=== PATIENT | female | born 1990 | race Caucasian/White ===

== ENCOUNTER 2022-07-01 16:36 | Emergency (ER) | payer MEDICAID, SELFPAY ==
[2022-07-01 16:53] VITALS: BP 116/81; PULSE 103; RESP 16; TEMP 36.9; O2SAT 99; BMI 18.0
--- NOTE | 2022-07-01 17:06 | ED_ITS ---
HPI - General Adult General Time Seen by Provider: 17:07 Date Seen: 07/01/22 Chief complaint: GI Bleed Stated complaint: BLOOD IN BOWEL MOVEMENTS - 1-2 WEEKS Time Seen by Provider: 07/01/22 17:04 Source: patient and RN notes reviewed Mode of arrival: ambulatory Limitations: no limitations History of Present Illness HPI narrative: Patient is a 32-year-old female with defecation. This is been going on about 2 weeks. She stools usually once a day most days and there has been no pain with stooling. She has been getting bright red blood mixed in with stool. She did show me a picture. She has some formed stool and some bright red blood in the toilet. She is not bleeding without stooling. She has maybe had some abdominal pain but it maybe lasts for 10 minutes. She had a grandfather that had colon cancer in his 70s, no other relative. No nausea vomiting, no fevers chills. In 2019, she did get a blood transfusion after placental abruption. Right now she feels a little lightheaded but no chest pain, no presyncope/syncope, not short of breath. Uses Depo-Provera for contraception and does not get her menses on this. Is sexually active. Takes no blood thinners. Related Data Allergies Allergy/AdvReac Type Severity Reaction Status Date / Time hydrocodone AdvReac Intermediate Nausea/vomi Verified 05/12/22 08:36 ting Review of Systems Status of ROS: Reports: 10 or more systems reviewed and unremarkable except as noted in History and below [facility] Medical History (Updated 07/01/22 @ 17:24 by Kari Mesa MD) Anemia due to acute blood loss Transfusion of blood during current hospitalization Surgical History (Updated 05/12/22 @ 08:37 by Isaura Hollingsworth) History of colposcopy with cervical biopsy (12/18/21) Status post cone biopsy of cervix (02/09/22) Status post primary low transverse section Status post repeat low transverse section Social History Smoking Status: Never smoker Do you use any of these nicotine containing products: None Second hand tobacco smoke exposure: No How often do you have a drink containing alcohol: never How often do you have six or more drinks on one occasion: Never AUDIT-C Alcohol total score: 0 Non-prescribed substance use: denies use service: No Exam Const: Vital Signs, click to edit/add: Vital Signs - 24 hr 07/01/22 16:53 07/01/22 17:37 07/01/22 18:18 Temperature 98.4 F Pulse Rate [Pulse Oximeter] 103 H 91 Respiratory Rate 16 16 Blood Pressure [Ri ght Upper Arm] 116/81 109/75 Pulse Oximetry 99 98 97 Oxygen Delivery Me thod Room Air Room Air Documenting provider has reviewed patient's vital signs: yes Common normals: no apparent distress, oriented x3, no limitations, healthy appearing and alert General appearance: cooperative and comfortable Nutritional appearance: thin HENMT: Common normals: normocephalic, head/scalp atraumatic, hearing grossly normal bilaterally, external ears normal, external nose normal, nasal mucous membranes and turbinates normal, moist oral mucous membranes, oropharynx normal, dentition normal and gingiva normal Head and scalp: normocephalic and atraumatic Nose: external nose normal and nasal mucous membranes and turbinates normal External ear: external ears normal Eye: Common normals: PERRL, EOMs intact bilaterally, conjunctivae normal and no scleral icterus Conjunctiva: conjunctiva(e) normal Pupil: PERRL Neck & C-Spine: Common normals: full ROM, no lymphadenopathy, supple, no meningeal signs, no JVD and thyroid normal Thyroid: thyroid normal Resp: Common normals: normal respiratory effort, no retractions, no use of accessory muscles and clear to auscultation bilaterally Auscultation: clear to auscultation bilaterally Cardio: Common normals: no JVD, regular rate, regular rhythm, S1 normal heart sound, S2 normal heart sound, no gallops, no clicks and no murmurs Rate: regu lar rate Rhythm: regular rhythm Heart sounds: S1 normal and S2 normal GI: Common normals: Normal to inspection, nondistended, normoactive bowel sounds present, soft to palpation, non-tender, no hepatosplenomegaly and no masses Palpation: soft and no hepatosplenomegaly Other: Rectal exam shows some redundant anal tissue, nothing actively bleeding, do see what looks to be some dried blood smeared around the anus. Digital rectal exam reveals good anal tone, no palpable masses, withdrawn glove finger shows some darker blood which is obviously guaiac positive. Extremity: Common normals: normal to inspection, full ROM, normal capillary refill, no joint enlargement, no clubbing, cyanosis or edema, no calf tenderness and no pedal edema Neuro: Common normals: oriented x3 Sensorium/orientation: alert Meningeal signs: no meningeal signs Speech: speech normal Gait (neuro): normal gait Course Course Hospital Course: Will initiate an IV in a L of normal saline. We will watch her on pulse oximetry here. We will get a CBC, comprehensive metabolic panel type and screen. I will see where her hemoglobin is, observe her for. Here in decide whether she can wait a more urgent outpatient colonoscopy or if hospitalization and a more emergent procedure needs to be done. Reevaluation(s) Reevaluation #1: Reviewed with patient that her CBC, comprehensive metabolic panel, hCG are all normal/negative. She has had no active bleeding while here. We will attempt to do further workup with outpatient diagnostic colonoscopy. She understands if she is worsening in the interim or increased bleeding that she may need to return to the ED. Time: 18:36 Vital Signs Vital signs: Initial Vital Signs Temperature 98.4 F 07/01/22 16:53 Temperature Source Temporal Artery Scan 07/01/22 16:53 Pulse Rate 103 H 07/01/22 16:53 Pulse Rhythm 07/01/22 16:53 Respiratory Rate 16 07/01/22 16:53 Blood Pressure 116/81 07/01/22 16:53 Blood Pressure Mean 92 07/01/22 16:53 Blood Pressure Position Sitting 07/01/22 16:53 Pulse Oximetry 99 07/01/22 16:53 Oxygen Delivery Method 07/01/22 16:53 Vital Signs Temperature 98.4 F 07/01/22 16:53 Pulse Rate 103 H 07/01/22 16:53 Respiratory Rate 16 07/01/22 16:53 Blood Pressure 116/81 07/01/22 16:53 Pulse Oximetry 99 07/01/22 16:53 Oxygen Delivery Method 07/01/22 16:53 Temperature 98.4 F 07/01/22 16:53 Pulse Rate 91 07/01/22 18:18 Respiratory Rate 16 07/01/22 18:18 Blood Pressure 109/75 07/01/22 18:18 Pulse Oximetry 97 07/01/22 18:18 Oxygen Delivery Method 07/01/22 18:18 Medical Decision Making Lab Data Lab results reviewed: Yes I reviewed the patient's lab results Labs: Lab Results 07/01/22 07/01/22 07/01/22 Range/Units 17:35 17:35 17:35 WBC 5.12 (4.50-11.00) K/uL RBC 4.17 (4.00-5.20) m/uL Hgb 13.3 (12.0-16.0) gm/dL Hct 39.3 (33.0-51.0) % MCV 94 (80-100) fL MCH 32 (26-34) pg MCHC 34 (32-36) gm/dL RDW Coeff of Elisabeth 12.5 (11.5-15.5) % Plt Count 291 (140-440) K/uL Neut % (Auto) 34.5 L (42.0-72.0) % Lymph % (Auto) 56.1 H (20-44) % Ashley % (Auto) 6.8 (0.0-11.0) % Eos % (Auto) 2.0 (0.0-7.0) % Baso % (Auto) 0.6 (0.0-3.0) % Neut # (Auto) 1.80 (1.7-7.0) K/uL Lymph # (Auto) 2.90 (0.90-2.90) K/uL Ashley # (Auto) 0.30 (0.00-0.90) K/UL Eos # (Auto) 0.10 (0.00-0.50) K/uL Baso # (Auto) 0.03 (0.00-0.30) K/uL Abs Immat Gran (auto) 0.00 (0.00-0.30) K/uL Sodium 141 (135-149) mmol/L Potassium 4.4 (3.6-5.1) mmol/L Chloride 109 (96-114) mmol/L Carbon Dioxide 24 (20-32) mmol/L BUN 10 (5-24) mg/dL Creatinine 0.7 (0.5-1.5) mg/dL Estimated Creat Clear 95.01 Estimated GFR 118 ml/min Glucose 92 (60-115) mg/dL Calcium 9.2 (8.4-10.6) mg/dL Total Bilirubin 0.2 (0.1-1.5) mg/dL AST 37 H (12-35) U/L ALT 10 (4-35) U/L Alkaline Phosphatase 75 (40-150) U/L Total Protein 6.9 (6.0-8.3) g/dL Albumin 4.5 (3.3-5.0) g/dL HCG, Qual Negative (Negative) Critical Care Time Critical Care Time Critical Care Time: No Discharge Plan Discharge Clinical Impression: BRBPR (bright red blood per rectum) Patient Disposition: Home, Self-Care Condition: Stable Instructions: Gastrointestinal Bleeding (ED), Rectal Bleeding (ED) Additional Instructions: No changes to your diet are necessary at this time. Would avoid aspirin/NSAIDs until you have been evaluated by colonoscopy, can use Tylenol he needs something for discomfort or pain. I have placed an order for an outpatient diagnostic colonoscopy, our endoscopy center should be contacting you to get this scheduled. In the meantime, should you have increased bleeding, or bleeding heavy or becoming symptomatic from blood loss such as shortness of breath, increasing pulse, lightheaded/dizziness, feeling faint, please seek re-evaluat ion. Activity Level: Activity as Tolerated Discharge Diet: Regular Follow Up/Referrals: Sully Haji MD [Primary Care Provider] - Stand Alone Forms: [employer] Info Instructions
[2022-07-01 17:37] VITALS: O2SAT 98
[2022-07-01 17:40] LABS: Basophils Absolute Auto 0.03 K/uL (0.00-0.30); Basophils Percent Auto 0.6 % (0.0-3.0); Hematocrit 39.3 % (33.0-51.0); Hemoglobin* 13.3 gm/dL (12.0-16.0); Lymphocytes Percent Auto 56.1 % (20-44); Mean Corpuscular HGB Conc 34 gm/dL (32-36); Mean Corpuscular Hemoglobin 32 pg (26-34); Mean Corpuscular Volume 94 fL (80-100); Monocytes Percent Auto 6.8 % (0.0-11.0); Neutrophils Percent Auto 34.5 % (42.0-72.0); Platelet Count* 291 K/uL (140-440); RDW Coefficient of Variation % 12.5 % (11.5-15.5); Red Blood Count 4.17 m/uL (4.00-5.20); White Blood Count* 5.12 K/uL (4.50-11.00)
[2022-07-01 17:41] LABS: Slide Review Reflex No
--- OUTSIDE RECORDS SUMMARY | 2022-07-01 17:49 | XMS_ITS | Encounter Summary ---
:1990 Author Organization [facility] Address [facility] [place] [address] Care Team Providers Name Role Phone [facility], [facility] Primary Care Provider [phone] Mallory Srinivasan Unavailable Unavailable Encounter Details Date Type Department Care Team Description 04/07/2021 Travel Social History Tobacco Use Types Packs/Day Years Used Date Never Assessed Sex Assigned at Date Recorded Not on file COVID-19 Exposure Response Date Recorded In the last month, have you been in contact with No / Unsure 04/07/2021 8:42 AM CDT someone who was confirmed or suspected to have Coronavirus / COVID-19? documented as of this encounter Plan of Treatment Not on filedocumented as of this encounter Visit Diagnoses Not on filedocumented in this encounter Care Teams [employer] Relationship Specialty Start Date End Date [facility], [facility] PCP - General 02/11/21 [place] [address] [place] [address] Mallory Srinivasan Assigned OBGYN Provider 02/22/21 04/11/21 documented as of this encounter
--- OUTSIDE RECORDS SUMMARY | 2022-07-01 17:49 | XMS_ITS | Encounter Summary ---
:1990 Author Organization [facility] Address [address] [facility] [place] [address] Care Team Providers Name Role Phone [facility], [facility] Primary Care Provider Mallory Srinivasan Unavailable Unavailable Reason for Visit Reason Comments Genetic Counseling positive quad screen for Jian n syndrome; echogenic bowel. (Routine) - Closed Specialty Diagnoses / Procedures Referred By Contact Refer red To Contact Diagnoses Abnormal ultrasound Abnormal maternal serum screening test Mora Hi MD [address] [place], [place] [address] Referral ID Status Reason Start Date Expiration Date Visits Requ ested Visits Authorized [id number] Closed 04/07/2021 04/07/2022 1 1 Encounter Details Date Type Department Care Team Description 04/07/[address] [facility] Dennys Hi MD [address] [place] [address] Abnormal ultrasound; Maternal Lori Barrera GC [address] [place], [place] [address] Abnormal maternal serum screening test [facility] [address] [facility] [address] [place] [address] Social History Tobacco Use Types Packs/Day Years Used Date Never Assessed Sex Assigned at Date Recorded Not on file COVID-19 Exposure Response Date Recorded In the last month, have you been in contact with No / Unsure 04/07/2021 8:42 AM CDT someone who was confirmed or suspected to have Coronavirus / COVID-19? documented as of this encounter Progress Notes Lori Barrera, GC - 04/07/2021 9:30 AM CDT [facility] Genetic Counseling Consult Patient: Vanessa Mary Date of : 1990 Date of Service: 04/07/21 Vanessa Mary was seen at the [facility] for genetic consultation following appointment for comprehensive ultrasound. Vanessa had a positive quad screen earlier in her . An echogenic bowel, a choroid plexus cyst, and small stomach bubble were identifiedand discussed with Dr. Hi. Vanessa was accompanied to today's visit by her partner, Yusuf. Impression/Plan: 1. Vanessa had a quad screen earlier in , which was screen positive for Down syndrome. The results indicated a 1/149 chance for Down syndrome in the . 2. Vanessa had a comprehensive (level II) ultrasound today which identified echogenic bowel, a choroid plexus cyst, and a small stomach. Please see the ultrasound report for further details. 3. The patient had a blood draw for NIPT through [facility]. Results are expected within 5-7 days, and will be available in [employer]. We will contact her to discuss the results, and a copy will be forwarded to the office of the referring OB provider. Vanessa provided verbal permission for detailed results ralph left on her voicemail. Charlene opted not to include screening for sex chromosome aneuploidies. The fetus is male by ultrasound. 4. Vanessa has a consultation with genetic counseling and one of the [facility] physicians earlier in her to discuss her history of placental abruption and loss at 35 weeks. Please see corresponding documentation for further details. Risk Assessment for Chromosome Conditions: We explained that the risk for chromosome abnormalities increases with maternal age. We discussed specific features of common chromosome abnormalities, including Down syndrome, trisomy 13, trisomy 18, and sex chromosome conditions ??? - At age 31 at midtrimester, the risk to have a baby with Down syndrome is 1 in 597. ??? - At age 31 at midtrimester, the risk to have a baby with any chromosome abnormality is 1 in 299. ??? Vanessa had maternal serum screening earlier in . Quad screen ??? Maternal plasma AFP, hCG, estriol, and inhibin measurement between 15-24 weeks gestation ??? Provides risk assessment for Down syndrome, trisomy 18, and neural tube defects ??? Vanessa had a quad screen earlier in ; we reviewed the results today, which were ScreenPositive ??? Chemical values were as follows ??? AFP 0.73 MoM, hCG 1.23 MoM, estriol 0.75 MoM, and MILES 2.67 MoM ??? This screen gave the following risk assessments: ??? Down syndrome risk= 1:149 ??? Trisomy 18 risk= 1:36114 ??? Open neural tube defects risk= 1:99015 We specifically discussed the analytes in her test results. We reviewed that increased hCG, decreased estriol, and increased MILES are all thought to be associated with an increased risk for Down syndrome in a . We discussed that the quad screen is designed to sort pregnancies into high risk and low risk categories, and that it does have a risk for false positive results. Approximately 1 in every 20 women who has a quad screen will get a high risk result when their is not affected. The screen positive cut off for Down syndrome on the quad screen is 1:150. Vanessa's ultrasound today identified echogenic bowel, a choroid plexus cyst, and a small stomach. The small stomach could represent, for example, duodenal atresia. These findings are all more common in pregnancies with Down syndrome. On its own, echogenic bowel imparts up to a 6.7 likelihood ratio. Thus, the a priori risk of 1/149 (~0.7%) is increased to 1/22 or ~4.5%. However, the chance is likely higher given the other findings. Echogenic bowel can also be associated with cystic fibrosis. Shelbie Goldberg had carrier screening earlier in the ; Yusuf was a carrier for cystic fibrosis and Vanessa was not (residual risk of 1 in 560[address]). Echogenic bowel can also be associated with infections such as cytomegalovirus. Vanessa and I discussed that definitive testing is available through amniocentesis, but that this procedure has a small risk for miscarriage associated with it. We discussed what a diagnosis of Down syndrome in the would mean for the couple. They shared that it wouldn't change anything for them in terms of continuing or not continuing the . 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 At this time, Vanessa elects to have NIPT done as a way of getting additional clarification without putting the at risk. The couple shared that if the NIPT returns high risk as well, they may consider moving forward with an amniocentesis in order to be prepared for delivery. We reviewed that diagnostic testing would also be available at delivery if invasive testing is not desired. Testing Options: We discussed the following options: Non-invasive Testing (NIPT) ?? Maternal plasma cell-free DNA testing; first trimester ultrasound with nuchal translucency and nasal bone assessment is recommended, when appropriate ?? Screens for trisomy 21, trisomy 13, trisomy 18, and sex chromosome aneuploidy ?? Cannot screen for open neural tube defects; maternal serum AFP after 15 weeks is recommended Genetic Amniocentesis ?? Invasive procedure typically performed in the second trimester by which amniotic fluid is obtained for the purpose of chromosome analysis and/or other genetic analysis ?? Diagnostic results; >99% sensitivity for chromosome abnormalities ?? AFAFP measurement tests for open neural tube defects We reviewed the benefits and limitations of this testing. Screening tests provide a risk assessment specific to the for certain chromosome abnormalities, but cannot definitively diagnose or exclude a chromosome abnormality. Follow-up genetic counseling and consideration of diagnostic testing is recommended with any abnormal screening result. Diagnostic tests carry inherent risks- including risk of miscarriage- that require careful consideration. These tests can detect chromosome abnormalities with greater than 99% certainty. Results can be compromised by maternal cell contamination or mosaicism, and are limited by the resolution of c ytogenetic G-banding technology. There is no screening nor diagnostic test that can detect all formsof defects or mental disability. It was a pleasure to be involved with Vanessa???s care. Osyg-ti-qrae time of the meeting was 20 minutes. Lori Barrera MS, [facility] Licensed Genetic Counselor [facility] [phone] documented in this encounter Plan of Treatment Not on filedocumented as of this encounter Visit Diagnoses Diagnosis Abnormal ultrasound Abnormal findings on screening Abnormal maternal serum screening test Abnormal findings on screening documented in this encounter Care Teams Salon Sales Consultant Relationship Specialty Start Date End Date Clinic, [facility] PCP - General 02/11/21 [place] [address] [place] [address] Mallory Srinivasan Assigned OBGYN Provider 02/22/21 04/11/21 documented as of this encounter
--- OUTSIDE RECORDS SUMMARY | 2022-07-01 17:49 | XMS_ITS | Clinical Summary ---
:1990 Author Organization [facility] [place] [address] Care Team Providers Name Role Phone Britney Fenton MD Primary Care Provider [phone] Allergies No known active allergies Medications Medication Sig Dispensed Refills Start Date End Date Status ondansetron (ZOFRAN ODT) Place 1 tablet 6 tablet 0 09/11/2015 Active 4 mg disintegrating on the tongue tabletIndications: Viral every 8 hours gastroenteritis if needed for Nausea/Vomiting . norgestimate-ethinyl Take 1 tablet 3 Package 3 02/17/2016 Active estradiol, 0.25-35 by mouth once mg-mcg, (SPRINTEC) daily. 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 Overview: 02/17/16 - Colposcopy advised Tobacco abuse 08/22/2012 Dysmenorrhea 08/22/2012 Immunizations Name Administration Dates Next Due Human Papilloma Virus Vaccine 08/22/2012 Influenza, IIV3 (Age >=3 years) 08/22/2012 Tdap 08/22/2012 Family History Medical History Relation Name Comments Good Health Father Good Health Mother Cancer-breast No Family History Diabetes No Family History Heart Disease No Family History Relation Name Status Comments Father Mother Social History Tobacco Use Types Packs/Day Years Used Date Current Every Day Smoker Cigarettes 0.5 Smokeless Tobacco: Never Used Tobacco Cessation: Ready to Quit: No; Co unseling Given: Yes Alcohol Use Standard Drinks/Week Comments Yes 0 (1 standard drink = 0.6 oz pure alcoho l) 1/month Alcohol Habits Answer Date Recorded How often do you have a drink containing alcohol? Not asked How many drinks containing alcohol do you have on a typical Not asked day when you are drinking? How often do you have six or more drinks on one occasion? No t asked Comment: 1/month 08/22/2012 Sex Assigned at Date Recorded Not on file Obstetrics History Last Filed Vital Signs Vital Sign Reading Time Taken Comments Blood Pressure 118/82 04/22/2016 3:21 PM CDT Pulse 87 04/22/2016 3:21 PM CDT Temperature 36.7 ??C (98 ??F) 04/22/2016 3:21 PM CDT Respiratory Rate - - Oxygen Saturation 97% 04/22/2016 3:21 PM CDT Inhaled Oxygen Concentration - - Weight 48.7 kg (107 lb 6.4 oz) 04/22/2016 3:21 PM CDT Height 169.9 cm (5' 6.89) 04/22/2016 3:21 PM CDT Body Mass Index 16.88 04/22/2016 3:21 PM CDT Plan of Treatment Health Maintenance Due Date Last Done Comments COVID-19 vaccine series (#1) 1990 Hepatitis C screening for age 0906/18/2008 18-79 BMI (ht and wt on same day) for 04/22/2017 04/22/2016, 02/07 age 18+ Depression screening for age 12+ 04/22/2017 04/22/2016 Influenza for age 9-49 06/10/2022 08/22/2012 Tetanus booster 08/22/2022 08/22/2012 Pap test for age 21-65 09/29/2024 09/29/2021, 09/29/2021, 01/27/2021, Additional history exists Tdap Completed 08/22/2012 Results Not on filefrom Last 3 Months Insurance Payer Benefit Plan / Subscriber ID Effective Dates Phone Addre ss Type Group [place] MED[place] CHOICE [id number] 2016-[place] [id number] [place] [address] Care Teams Framing Specialist Relationship Specialty Start Date End Date Britney Fenton MD PCP - General Family Practice 06/06/13 [address] [place] [address]
--- OUTSIDE RECORDS SUMMARY | 2022-07-01 17:49 | XMS_ITS | Encounter Summary ---
:1990 Author Organization [place] Address [address] [place] [address] Care Team Providers Name Role Phone [facility], [facility] Primary Care Provider Mallory Srinivasan Unavailable Unavailable Reason for Referral (Routine) - Closed Specialty Diagnoses / Procedures Referred By Contact Refer red To Contact Diagnoses Abnormal ultrasound Abnormal maternal serum screening test Mora Hi MD [address] [place], [place] [address] Referral ID Status Reason Start Date Expiration Date Visits Requ ested Visits Authorized [id number] Closed 04/07/2021 04/07/2022 1 1 Reason for Visit Reason Comments Ultrasound L2-hx of abruption, anti deangelo l antibody Encounter Details Date Type Department Care Team Description 04/07/2021 Office Visit [facility] Mallory Srinivasan Howard spected chromosome anomaly of fetus affecting management of mother in jennings , antepartum (Primary Dx); Maternal Mora Hi MD [address] [place] [address] Abnormal ultrasound; [facility] Center Abnormal mat ernal serum screening test; [place] Suspected anomaly, ant epartum, single or unspecified fetus [address] [place] [address] Social History Tobacco Use Types Packs/Day Years Used Date Never Assessed Sex Assigned at Date Recorded Not on file COVID-19 Exposure Response Date Recorded In the last month, have you been in contact with No / Unsure 04/07/2021 8:42 AM CDT someone who was confirmed or suspected to have Coronavirus / COVID-19? documented as of this encounter Progress Notes Mora Hi MD - 04/07/2021 9:15 AM CDT Please see Imaging tab under Chart Review for details of today's visit. Mora Hi documented in this encounter Plan of Treatment Scheduled Referrals Name Type Priority Associated Diagnoses [facility] Referral Routine Abnormal Exp ected: 04/07/2021 ultrasound (Approximate), Abnormal maternal serum Expi res: 07/08/2021 screening test documented as of this encounter Results NIPT to [facility]: Laboratory Miscellaneous Order (04/07/2021 10:46 AM CDT) Component Value Ref Test Analysis Performed At [facility] Range Method Time Signature Miscellaneous Specimen Received, Reordered and sent to Performing laboratory - Report to follow upon 04/16/2021 [facility] Test completion. 8:13 AM CDT [facility] Specimen Anatomical Collection Method Collection Time Receive d Time (Source) Location / / Volume Laterality Blood 04/07/2021 10:46 04/07/2021 1:58 AM CDT PM CDT Narrative This result has an attachment that is no t available. Mora Hi MD LAB - BLOOD ORDERABLES Performing Organization Address City/State/ZIP Code Phon e Number [facility] [address] [place] [address] [facility] documented in this encounter Visit Diagnoses Diagnosis Suspected chromosome anomaly of fetus af fecting management of mother in jennings , antepartum - Primary Abnormal ultrasound Abnormal findings on screening Abnormal maternal serum screening test Abnormal findings on screening Suspected anomaly, antepartum, sin gle or unspecified fetus documented in this encounter Care Teams Highway Maintenance Worker Relationship Specialty Start Date End Date Clinic, [facility] PCP - General 02/11/21 [place] [address] [place] [address] Mallory Srinivasan Assigned OBGYN Provider 02/22/21 04/11/21 documented as of this encounter
--- OUTSIDE RECORDS SUMMARY | 2022-07-01 17:49 | XMS_ITS | Clinical Summary ---
:1990 Author Organization [place] Address [address] [place] [address]. [place] [address] Care Team Providers Name Role Phone [facility] Primary Care Provider Social History Tobacco Use Types Packs/Day Years Used Date Never Assessed Sex Assigned at Date Recorded Not on file Plan of Treatment Health Maintenance Due Date Last Done Comments ADVANCE CARE PLANNING 1990 ANNUAL REVIEW OF HM ORDERS 1990 PREVENTIVE CARE VISIT 1990 COVID-19 Vaccine (#1) 1990 HEPATITIS B IMMUNIZATION (2 07/03/2003 06/05/2003 of 3 - 3-dose primary series) HIV SCREENING 2005 HEPATITIS C SCREENING 2008 PHQ-2 (once per calendar 10/10/2021 year) INFLUENZA VACCINE (#1) 2022 08/22/2012 PAP 01/28/2024 01/27/2021 DTAP/TDAP/TD IMMUNIZATION (4 02/25/2030 02/26/2020, - Td or Tdap) 08/22/2012, 06/05/2003 IPV IMMUNIZATION Aged Out No longer eligi ble based on patient's age to complete this to pic MENINGITIS IMMUNIZATION Aged Out No longe r eligible based on patient's age to complete this to pic Pneumococcal Vaccine: Aged Out No longer eligible based Pediatrics (0 to 5 Years) and on patient's age to At-Risk Patients (6 to 64 comple te this topic Years) Care Teams Ground [address] [address] Railway Relationship Specialty Start Date End Date [facility], [facility] PCP - General 02/11/21 [address] [place] [place] [phone]
--- OUTSIDE RECORDS SUMMARY | 2022-07-01 17:49 | XMS_ITS | Encounter Summary ---
:1990 Author Organization [place] Address [facility] [place] [address] Care Team Providers Name Role Phone [facility], [facility] Primary Care Provider [phone] Mallory Srinivasan Unavailable Unavailable Encounter Details Date Type Department Care Team Description 04/07/2021 Hospital Encounter [facility] Mallory Srinivasan old Abnormal ultrasound; [facility] Laboratory Mora Hi MD [address] [facility] [address] [place], [place] [id number] Abnormal maternal serum screening test [address] [place] [address] Social History Tobacco Use Types [...] Not on filedocumented as of this encounter Procedures Procedure Name Priority Date/Time Associated Comments Diagnosis SEND OUTS MISC TEST Routine 04/07/2021 10:46 Abnormal Re sults for this AM CDT ultrasound procedure are i n the results section. LABORATORY Routine 04/07/2021 10:46 Abnormal Results f or this MISCELLANEOUS ORDER AM CDT ultrasound procedure are in Abnormal maternal the result s serum screening section. test documented in this encounter Results Send outs misc test (04/07/2021 10:46 AM CDT) Analysis Performed At Patho logist Time Signature Lab Scanned SEND OUTS [facility] Result MISC TEST-Scann ed Specimen (Source) Anatomical Collection Method Collection Time Re ceived Time Location / / Volume Laterality 04/07/2021 10:46 AM CDT Mora Hi MD LAB - BLOOD ORDERABLES Performing Organization Address City/State/ZIP Code Phon e Number [facility] NIPT to [facility]: Laboratory Miscellaneous Order (04/07/2021 10:46 AM CDT) Component Value Ref Test Analysis Performed At [facility] gist Range Method Time Signature Miscellaneous Specimen Received, Reordered and sent to Performing laboratory - Report to follow upon 04/16/2021 [facility] Test completion. 8:13 AM CDT [facility] Specimen Anatomical Collection Method Collection Time Receive d Time (Source) Location / / Volume Laterality Blood 04/07/2021 10:46 04/07/2021 1:58 AM CDT PM CDT Narrative This result has an attachment that is no t available. Mora Hi MD LAB - BLOOD ORDERABLES Performing Organization Address City/State/ZIP Code Phon e Number [facility] [address] [place], [place] [id number] [place] [address] documented in this encounter Visit Diagnoses Diagnosis Abnormal ultrasound Abnormal findings on screening Abnormal maternal serum screening test Abnormal findings on screening documented in this encounter Care Teams Urgent Care Physician Relationship Specialty Start Date End Date [facility] PCP - General 02/11/21 [place] [address] [place] [phone] Mallory Srinivasan Assigned OBGYN Provider 02/22/21 04/11/21 documented as of this encounter
--- OUTSIDE RECORDS SUMMARY | 2022-07-01 17:49 | XMS_ITS | Encounter Summary ---
:1990 Author Organization [place] Address [address] [place] [address] Care Team Providers Name Role Phone [facility], [facility] Primary Care Provider [phone] Mora Hi MD Unavailable Reason for Visit Reason Onset Date Comments Results 04/16/2021 low-risk NIPT Encounter Details Date Type Department Care Team Description 04/16/2021 Telephone [facility] Lori Barrera, Results (low-risk NIPT) Maternal Medicine [address] [address] [place] [phone] Social History Tobacco Use Types Packs/Day Years Used Date Never Assessed Sex Assigned at Date Recorded Not on file COVID-19 Exposure Response Date Recorded In the last month, have you been in contact with No / Unsure 04/07/2021 8:42 AM CDT someone who was confirmed or suspected to have Coronavirus / COVID-19? documented as of this encounter Miscellaneous Notes Telephone Encounter - Barrera Lori, - 04/16/2021 11:53 AM CDT April 16, 2021 I spoke with Vanessa regarding her NIPT results. Results indicate NO ANEUPLOIDY DETECTED for chromosomes 21, 18, or 13. This puts her current at low risk for Down syndrome, trisomy 18, and trisomy 13. This testis reported to have the following sensitivities: Down syndrome- >99.9%, trisomy 18- >99.9%, and trisomy 13- >99.9%. Although these results are reassuring, this does not replace a standard chromosome analysis from a chorionic villus sampling or amniocentesis. Her results are available in her [facility] chart for her primary OB to review. Loir Barrera, MS, [facility] Licensed Genetic Counselor [facility] Maternal Medicine [email or web address] [phone] documented in this encounter Plan of Treatment Not on filedocumented as of this encounter Visit Diagnoses Not on filedocumented in this encounter Care Teams Legal Researcher Relationship Specialty Start Date End Date Clinic, [facility] PCP - General 02/11/21 [place] [address] [place] [address] Mora Hi MD Assigned OBGYN Provider 04/12/21 08/29/[address] [place] [address] [address] [place] [address] documented as of this encounter
--- OUTSIDE RECORDS SUMMARY | 2022-07-01 17:50 | XMS_ITS | Encounter Summary ---
:1990 Author Organization [place] Address [facility] [place] [address] Care Team Providers Name Role Phone Unavailable Primary Care Provider Unavailable Reason for Referral (Routine) - Closed Specialty Diagnoses / Procedures Referred By Contact Refer red To Contact Diagnoses related condition, antepartum Gina Lee [facility] [address] [place] [address] Referral ID Status Reason Start Date Expiration Date Visits Requ ested Visits Authorized [id number] Closed 02/03/2021 02/03/2022 1 1 Encounter Details Date Type Department Care Team Description 02/03/[address] [facility] Arcenio Lee related Maternal [facility] antepartum (Primary [place] [address] Dx) [address] [place] [address] [phone] Social History Tobacco Use Types Packs/Day Years Used Date Never Assessed Sex Assigned at Date Recorded Not on file documented as of this encounter Plan of Treatment Scheduled Referrals Name Type Priority Associated Diagnoses Order S carmen [facility] Office Visit Referral Routine related Expect ed: 02/10/2021 condition, antepartum (Appro ximate), Expires: 02/03/2022 documented as of this encounter Visit Diagnoses Diagnosis related condition, antepartum - Primary documented in this encounter
--- OUTSIDE RECORDS SUMMARY | 2022-07-01 17:50 | XMS_ITS | Encounter Summary ---
:1990 Author Organization [place] Address [address] [place] [address] Care Team Providers Name Role Phone [facility], [facility] Primary Care Provider Encounter Details Date Type Department Care Team Description 02/12/2021 Travel Social History Tobacco Use Types Packs/Day Years Used Date Never Assessed Sex Assigned at Date Recorded Not on file COVID-19 Exposure Response Date Recorded In the last month, have you been in contact with No / Unsure 02/12/2021 9:18 AM CDT someone who was confirmed or suspected to have Coronavirus / COVID-19? documented as of this encounter Plan of Treatment Not on filedocumented as of this encounter Visit Diagnoses Not on filedocumented in this encounter Care Teams Wind Turbine Performance Engineer Relationship Specialty Start Date End Date [facility], [facility] PCP - General 02/11/21 [address] [place] [address] documented as of this encounter
--- OUTSIDE RECORDS SUMMARY | 2022-07-01 17:50 | XMS_ITS | Encounter Summary ---
:1990 Author Organization [place] Address [address] [place] [address] Care Team Providers Name Role Phone Clinic, [facility] Primary Care Provider [phone] Encounter Details Date Type Department Care Team Description 02/12/2021 Orders Only [facility] Frannie Pinto DO [address] [place] [address] related condition, antepartum; [facility] Kelly Perdomo MD [address] [place] [address] History of placenta abruption; Mallory Doty Encounter for other genetic testing of f emale for procreative management [address] [place] [address] Social History Tobacco Use Types Packs/Day Years [...] encounter Procedures Procedure Name Priority Date/Time Associated Diagnosis Comme nts COUNSYL FORESIGHT Routine 02/12/2021 12:08 PM relate d Results for this CARRIER SCREEN CDT condition, procedure are in antepartum the results History of placenta section. abruption Encounter for other genetic testing of female for procreative management documented in this encounter Results Counsyl Foresight Carrier Screen (02/12/2021 12:08 PM CDT) [facility] gist Method Time Signature Lab Scanned COUNSYL MISYS Result FORESIGHT SCR-Scanned Specimen (Source) Anatomical Collection Method Collection Time Re ceived Time Location / / Volume Laterality Blood 02/12/2021 12:08 PM CDT Mallory Srinivasan LAB - BLOOD ORDERABLES Performing Organization Address City/State/ZIP Code Phon e Number [facility] documented in this encounter Visit Diagnoses Diagnosis related condition, antepartum History of placenta abruption Encounter for other genetic testing of f emale for procreative management documented in this encounter Care Teams Garbage Man Relationship Specialty Start Date End Date Clinic, [facility] PCP - General 02/11/[address] [place] [phone] documented as of this encounter
--- OUTSIDE RECORDS SUMMARY | 2022-07-01 17:50 | XMS_ITS | Encounter Summary ---
:1990 Author Organization [facility] Address [address] [place] [address] Care Team Providers Name Role Phone Unavailable Primary Care Provider Unavailable Reason for Visit Reason Comments COVID Inquiry Encounter Details Date Type Department Care Team Description 12/19/2020 Clinical Communication Central Appointment SIMBA [place] Office in [facility] [address] [place] [address] Social History Tobacco Use Types Packs/Day Years Used Date Smoking Tobacco: Never Assessed Sex Assigned at Date Recorded Not on file documented as of this encounter Miscellaneous Notes Telephone Encounter - Isabel Seaman - 12/19/2020 12:09 PM CST What is the purpose of the call?: Requesting Testing Only Request Testing In the past 14 days are any of the following symptoms new to you and not related to an existing health condition?: New sore throat Because of symptoms, transfer patient to: : [place] COVID Nurse Line (End Screening) Symptom Onset Date of symptom onset: 12/18/20 Testing Recommendation Endpoint Is testing recommended? : Transferred to nursing call line Plan: Endpoint recommendation: Transferred to Nursing/COVID Line/Care Team *Reminder if sending patient for testing in [facility] or [facility], route encounter to the correct testing pool. LINE WELDER documented in this encounter Plan of Treatment Not on filedocumented as of this encounter Visit Diagnoses Not on filedocumented in this encounter
--- OUTSIDE RECORDS SUMMARY | 2022-07-01 17:50 | XMS_ITS | Encounter Summary ---
:1990 Author Organization [facility] Address [address] [place] [address] Care Team Providers Name Role Phone Unavailable Primary Care Provider Unavailable Encounter Details Date Type Department Care Team Description 02/04/2021 Orders Only [facility] PCP TH Sa sujatha Mena M.D. [address] [place], [place] [phone] (Wo rk) Social History Tobacco Use Types Packs/Day Years Used Date Smoking Tobacco: Never Assessed Sex Assigned at Date Recorded Not on file documented as of this encounter Plan of Treatment Not on filedocumented as of this encounter Visit Diagnoses Not on filedocumented in this encounter
--- OUTSIDE RECORDS SUMMARY | 2022-07-01 17:50 | XMS_ITS | Encounter Summary ---
:1990 Author Organization [place] Address [address] [place] [address] Care Team Providers Name Role Phone [facility], [facility] Primary Care Provider [phone] Mallory Srinivasan Unavailable Unavailable Reason for Visit Reason Onset Date Comments Results 02/23/2021 carrier screening Encounter Details Date Type Department Care Team Description 02/23/2021 Telephone [facility] Lori Barrera, Results (carrier Maternal Medicine GC screening) [address] [address] [place] [phone] Social History Tobacco Use Types Packs/Day Years Used Date Never Assessed Sex Assigned at Date Recorded Not on file COVID-19 Exposure Response Date Recorded In the last month, have you been in contact with No / Unsure 02/12/2021 9:18 AM CDT someone who was confirmed or suspected to have Coronavirus / COVID-19? documented as of this encounter Miscellaneous Notes Telephone Encounter - Lori Barrera GC - 02/23/2021 12:17 PM CDT February 23, 2021 I called Vanessa to discuss the result of her and Yusuf's carrier screening. Vanessa was not found to be a carrier of any of the 14 conditions screened. This significantly reduces the couple's reproductive risk for these conditions. 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 Cystic Fibrosis (CF) is an inherited condition characterized by the production of abnormally thick, sticky mucus, particularly in the lungs and digestive system. While it is normal to have mucus lining the organs of the respiratory, digestive, and reproductive systems in order to lubricate and prote ct them, in individuals with CF this mucus is thick and sticky. This abnormal mucus results in the clogging and obstructing of various systems in the body. CF is a chronic condition that worsens over time. ?? Vanessa was not found to be a carrier of this condition. The couple's reproductive risk is 1 in 12,000. I also let Vanessa know that she is still in the window to have an NT ultrasound. I asked her to call me back if she would like to move forward with any aneuploidy screening. Lori Barrera MS, [facility] Licensed Genetic Counselor [facility] Maternal Medicine [email or web address] [phone] documented in this encounter Plan of Treatment Not on filedocumented as of this encounter Visit Diagnoses Not on filedocumented in this encounter Care Teams Stainless Steel Finisher Relationship Specialty Start Date End Date Clinic, [facility] PCP - General 02/11/21 [place] [address] [place] [address] Mallory Srinivasan Assigned OBGYN Provider 02/22/21 04/11/21 documented as of this encounter
--- OUTSIDE RECORDS SUMMARY | 2022-07-01 17:50 | XMS_ITS | Encounter Summary ---
:1990 Author Organization [facility] Address [address] [place] [address] Care Team Providers Name Role Phone Unavailable Primary Care Provider Unavailable Reason for Visit Reason Onset Date Comments Outpatient COVID-19 Testing 12/19/2020 Encounter Details Date Type Department Care Team Description 12/19/2020 External Outreach Department of [facility] Danielito Mae Contact With And Medicine, [facility] Kiarra Leon (Suspected) Exposure Building, in [address] To COVID-19 ([place], [place] Dx) [address] [facility] [address] [place], [place] [phone] [address] (Work) [phone] Social History Tobacco Use Types Packs/Day Years Used Date Smoking Tobacco: Never Assessed Sex Assigned at Date Recorded Not on file documented as of this encounter Progress Notes Harshil Oreilly R.N. - 12/19/2020 1:01 PM CST Encounter created for COVID-19 screening. ITY SYSTEM REPAIRER documented in this encounter Plan of Treatment Not on filedocumented as of this encounter Procedures Procedure Name Priority Date/Time Associated Diagnosis Comme nts SARS CORONAVIRUS-2 Routine 12/19/2020 2:51 PM Contact With And Results for this RNA, V UTILITY SYSTEM REPAIRER (Suspected) Exposure procedu re are in To COVID-19 the results section. documented in this encounter Results SARS Coronavirus-2 RNA, V Asymptomatic (12/19/2020 2:51 PM UTILITY SYSTEM REPAIRER) [facility] Method Time Signature SARS-CoV-2 Swab, 12/20/2020 [facility] Specimen Nasopharynx 12:45 AM Source UTILITY SYSTEM REPAIRER SARS CoV-2 Undetected Undetected 12/20/2020 [facility] RNA, TMA 12:45 AM UTILITY SYSTEM REPAIRER Comment: SARS-CoV-2 RNA absent. This result does not rule out COVID-19 in the patient, as the sensitivity of the test depends o n the timing of the specimen collection and the quality of the specim en. Result should be correlated with patient's history and clinical presentat ion. ----ADDITIONAL INFORMATION---- This molecular amplification test was pe rformed using the Aptima SARS-CoV-2 assay ([employer] on the TRIBAXs tem under emergency use authorization (EUA) by the U.S. Food and Drug Administ ration. Fact sheets for this EUA assay can be fo und at the following links: For Healthcare Providers: https://www.fd a.gov/media/975713/download For Patients: https://www.fda.gov/media/ 965256/download Specimen Anatomical Collection Method Collection Time Receive d Time (Source) Location / / Volume Laterality Varies 12/19/2020 2:51 PM 7:26 (Nasopharynx) UTILITY SYSTEM REPAIRER PM UTILITY SYSTEM REPAIRER Danielito Mae D.O. LAB MICROBIOLOGY - GENERAL O RDERABLES Performing Organization Address City/State/ZIP Code Phon e Number [facility] [address] [place] [phone] [place] [address] [place] [address] [address] documented in this encounter Visit Diagnoses Diagnosis Contact With And (Suspected) Exposure To COVID-19 - Primary documented in this encounter Additional Health Concerns Infection Onset Date Last Indicated Resolved Time COVID19 Pending 12/19/2020 12/19/2020 12/20/2020 12:47 AM UTILITY SYSTEM REPAIRER documented as of this encounter
--- OUTSIDE RECORDS SUMMARY | 2022-07-01 17:50 | XMS_ITS | Encounter Summary ---
:1990 Author Organization [employer] Address [address] [place] [address] Care Team Providers Name Role Phone Clinic, [facility] Primary Care Provider [phone] Mallory Srinivasan Unavailable Unavailable Reason for Referral Diagnostic Imaging Ultrasound (Routine) - Closed Specialty Diagnoses / Procedures Referred By Contact Refer red To Contact Diagnoses History of placenta abruption Mallory Srinivasan Procedures [facility] US Comprehensive Single [facility] US Comprehensive Single F/U [address] [place] [address] Referral ID Status Reason Start Date Expiration Date Visits Requ ested Visits Authorized [id number] Closed 02/12/2021 02/12/2022 1 1 Reason for Visit Diagnostic Imaging Ultrasound (Routine) - Closed Specialty Diagnoses / Procedures Referred By Contact Refer red To Contact Diagnoses History of placenta abruption Mallory Srinivasan Procedures [facility] US Comprehensive Single [facility] US Comprehensive Single F/U [address] [place] [address] Referral ID Status Reason Start Date Expiration Date Visits Requ ested Visits Authorized [id number] Closed 02/12/2021 02/12/2022 1 1 Encounter Details Date Type Department Care Team Description 04/07/2021 [facility] History of placenta Maternal Mora Hi MD [address] [place], [place] [address] [facility] [address] [facility] [facility] [address] [place] [address] Social History Tobacco Use Types [...] Procedure Name Priority Date/Time Associated Comments Diagnosis [facility] US COMPREHENSIVE Routine 04/07/2021 9:27 AM [facility] Results for this SINGLE CDT abruption procedure are i n the results section. documented in this encounter Results [facility] US Comprehensive Single (04/07/2021 9:27 AM CDT) Anatomical Region Laterality Modality Ultrasound Specimen (Source) Anatomical Collection Method Collection Time Re ceived Time Location / / Volume Laterality 04/07/2021 8:42 AM CDT Impressions 04/07/2021 2:04 PM CDT IMPRESSION 1) Mckeon intrauterine at 1 8w 3d gestational age. 2) A left choroid plexus cyst is noted. The stomach appears small in 3 dimensions and the bowel appears echogenic. Otherwise, none of the anomalies commonly detected by ultrasound were raquel dent in the detailed anatomic survey described above, although evaluation of anatomy was suboptimal as noted above. 3) Growth parameters and estimated weight were consistent with an appropriate for gestation age pattern of growth. 4) The amniotic fluid volume appeared no rmal. Narrative 04/07/2021 2:04 PM CDT Comprehensive Pat. Name: VANESSA MARY Study Date: 04/07/2021 8:42am Pat. NO: [id number] Referring ??MD: KRISTA EDWARDS Site: [facility] Fee Clerk: Rose Myles RDMS : 1990 Age: 30 INDICATION History of abruption with demise a t 35 weeks. METHOD Transabdominal ultrasound examination. V iew: Sufficient Mckeon . Number of fetuses: 1 DATING ? Date ?Details ?Gest. age ?JAIME LMP ?11/23/2020 ?Cycle: LMP date uncertain ? 19 w + 2 d ? 08/30/2021 Prior assessment ? GA: 8 w + 3 d ?18 w + 3 d ? 09/05/2021 U/S ? 04/07/2021 ? based upon AC, BPD, Femur, HC ? 18 w + 6 d ? 09/02/2021 Assigned dating ?Dating performed on 04/07/2021, based on the prior assessment (on 01/27/2021) ? 18 w + 3 d ? 09/05/2021 GENERAL EVALUATION Cardiac activity present. FHR 142 bpm. movements present. Presentation breech. Placenta Posterior, No Previa, > 2 cm fr om internal os. Umbilical cord 3 vessel cord, normal ins ertion. Amniotic fluid Amount of AF: normal. MVP 5.7 cm. BIOMETRY Main Biometry: BPD ?42.4 ?mm ? 18w 6d ?Hadlock OFD ?58.2 ?mm ? 19w 0d ?Nicolaides HC ?161.5 ?mm ?19w 0d ?Hadlock Cerebellum tr ?19.1 ? mm ?18w 4d ?Nicolaides AC ?140.0 ?mm ?19w 3d ?78% ?Hadlock Femur ?25.9 ? mm ?17w 6d ?Hadlock Humerus ?27.0 ?mm ? 18w 4d ?Familia Weight Calculation: EFW ? 253 ? g ? 60% ?Hadlock EFW (lb,oz) ? 0 lb 9 ?oz EFW by ?Hadlock ([id number]) Head / Face / Neck Biometry: Survey Questionnaire Designer ? 5.8 ? mm CM ?2.8 ? mm Nasal bone ? 5.3 ? mm Nuchal fold ? 3.6 ? mm Abdomen Biometry: Stomach ap ? 5.1 ?mm ? 4% ?Ramirez Stomach tr ? 4.1 ? mm ?<1% ?Ramirez Stomach long ? 8.8 ? mm ?<1% ?Ramirez ANATOMY Abdomen ? Stomach: small stomach The following structures appear abnormal : Head / Neck ? Left choroid plexus: cyst. Abdomen ? Bowel. The following structures appear normal: Head / Neck ? Cranium. Head size. Head shape. Lateral ventricles. Right choroid plexus. Midline falx. Cavum septi pellucidi. Cerebellum. Cisterna magna. ? Parenchyma. Thalami. Vermis. ? Neck. Nuchal fold. Face ? Lips. Profile. Nose. Maxilla. Mandible. Orbits. Lens. Heart / Thorax ?4-chamber view. LVOT view. Situs. Aortic arch view. Bicaval view. Ductal arch view. Superior vena cava. Inferior vena cava. 3-vessel view. ? 7-tidxqy-aawxocs view. Cardiac position. Cardiac size. Cardiac rhythm. ? Right lung. Left lung. Diaphragm. Abdomen ? Abdominal wall. Cord insertion. Kidneys. Bladder. Liver. Genitals. Spine ?Cervical spine. Thoracic spine. Lumbar spine. Sacral spine. Extremities / Skeleton ?Rig ht arm. Right hand. Left arm. Left hand. Right leg. Right foot. Left leg. Left foot. The following structures could not be ad equately visualized: Heart / Thorax ?RVOT view. Abdomen other: echogenic bowel Gender: male. MATERNAL STRUCTURES Cervix ?Visualized ? Appearance: Appears Closed ? Cervical length 37.8 mm Right Ovary ?Visualized Left Ovary ?Not visualized RECOMMENDATION We discussed the findings on today's ult rasound with the patient. We reviewed with the patient the results of her multiple marker screen which indicated an increased risk for Down syndrome of . This is increased from her age-related risk of 1/658. We then reviewed that the bowel appeared echogenic on today's US. We discussed the possibility that the echogenic bowel is idiopathic (or normal variant) or related to swallowing of blo od. She reports no bleeding this . We also discussed that echogenic bowel is associated with aneuploidy, congenital infection, cystic fibrosis, or other abn ormalities of the bowel (e.g. meconium peritonitis, bowel atresia or bowel ischemia). Echogenic bowel is associated with a relative risk for trisomy 21 of 6.7. This finding incr eases your patient's risk for trisomy 21 in this to 5%. The couple have already had CF sheila er screening and Vanessa was not found to be a carrier. The risks, be nefits and limitations of maternal serum screening, cell-free DNA screening, ultrasound and genetic amniocentesis were thoroughly reviewed with the patient. We discussed the availability of amniocentesis for the precise diagnosis of chromosomal abnormalities including the associated procedure-related risk of loss of 1/300 to 1/500 . The patient declined amniocentesis and serologies today, but did opt to proceed with cfDNA screening today. We discussed the finding of the unilater al choroid plexus cyst. We discussed that choroid plexus cysts are seen in 1-2.5% of normal pregnancies as an isolated finding with no clinically significant impact. T hey can be unilateral or bilateral and result from the trapping of CSF within the choroid plexus. While MAINTENANCE TECHNICIAN 2ND SHIFT can be associated with a slight increase in the risk for Trisomy 18, given Vanessa's quad screen that returned low risk for T18, her risk remains low and this most likely represents a normal variant and requires no additional follow-up. We then reviewed that the small appeared small on today's US. WE reviewed that this can be a normal finding if it is transient, but persistently small stomach, particularly if accompanied by polyhydramnios, would suggest a functional or mechanical obstruction to passage of amniotic fluid into the stomach. Therefore, serial assessment is recommended and a repeat US has been shell eduled here in 3 weeks to re-evaluate growth and anatomy. Return to primary provider for continued care. Thank you for the opportunity to partici paz in the care of this patient. If you have questions regarding today's evaluation or if we can be of further service, please contact the [facility]. anomalies may be present but not detected I spent a total of 37 minutes on the trip e of this encounter in the care of Vanessa Mary, includin minutes reviewing the patient's chart, 25 minutes in direct patient contact, 7 minutes documenting in the ct dical record. Please see note for details. Procedure Note Mora Hi MD - 04/07/2021Formatt ing of this note might be different from the original. Comprehensive Sravani. Name:Jud MARY Date: 8:42am Pat. NO: [id number] MD:[facility]ARY [facility]Rose Myles RD MS :1990Age:30 INDICATION History of abruption with demise a t 35 weeks. METHOD Transabdominal ultrasound examination. V iew: Sufficient Mckeon . Number of fetuses: 1 DATING Date Details Gest. age JAIME LMP 11/23/2020 Cycle: LMP date uncertain 19 w + 2 d 08/30/2021 Prior assessment 01/27/2021 GA: 8 w + 3 d 18 w + 3 d 09/05/2021 U/S 04/07/2021 based upon AC, BPD, Femur, HC 18 w + 6 d 09/02/2021 Assigned dating Dating performed on 03/11, based on the prior assessment (on 01/27/2021) 18 w + 3 d 09/05/2021 GENERAL EVALUATION Cardiac activity present. FHR 142 bpm. movements present. Presentation breech. Placenta Posterior, No Previa, > 2 cm fr om internal os. Umbilical cord 3 vessel cord, normal ins ertion. Amniotic fluid Amount of AF: normal. MVP 5.7 cm. BIOMETRY Main Biometry: BPD 42.4 mm 18w 6d Hadlock OFD 58.2 mm 19w 0d Nicolaides HC 161.5 mm 19w 0d Hadlock Cerebellum tr 19.1 mm 18w 4d Nicolaides AC 140.0 mm 19w 3d 78% Hadlock Femur 25.9 mm 17w 6d Hadlock Humerus 27.0 mm 18w 4d Familia Weight Calculation: EFW 253 g 60% Hadlock EFW (lb,oz) 0 lb 9 oz EFW by Hadlock ([id number]) Head / Face / Neck Biometry: Survey Questionnaire Designer 5.8 mm CM 2.8 mm Nasal bone 5.3 mm Nuchal fold 3.6 mm Abdomen Biometry: Stomach ap 5.1 mm 4% Ramirez Stomach tr 4.1 mm <1% Ramirez Stomach long 8.8 mm <1% Ramirez ANATOMY Abdomen Stomach: small stomach The following structures appear abnormal : Head / Neck Left choroid plexus: cyst. Abdomen Bowel. The following structures appear normal: Head / Neck Cranium. Head size. Head sha pe. Lateral ventricles. Right choroid plexus. Midline falx. Cavum septi pellucidi. Cerebellum. Cisterna magna. Parenchyma. Thalami. Vermis. Neck. Nuchal fold. Face Lips. Profile. Nose. Maxilla. Pamela ble. Orbits. Lens. Heart / Thorax 4-chamber view. LVOT view . Situs. Aortic arch view. Bicaval view. Ductal arch view. Superior vena cava. Inferior vena cava. 3-vessel view. 6-hsfprh-iqysfdi view. Cardiac position . Cardiac size. Cardiac rhythm. Right lung. Left lung. Diaphragm. Abdomen Abdominal wall. Cord insertion. Kidneys. Bladder. Liver. Genitals. Spine Cervical spine. Thoracic spine. Alba mbar spine. Sacral spine. Extremities / Skeleton Right arm. Right hand. Left arm. Left hand. Right leg. Right foot. Left leg. Left foot. The following structures could not be ad equately visualized: Heart / Thorax RVOT view. Abdomen other: echogenic bowel Gender: male. MATERNAL STRUCTURES Cervix Visualized Appearance: Appears Closed Cervical length 37.8 mm Right Ovary Visualized Left Ovary Not visualized RECOMMENDATION We discussed the findings on today's ult rasound with the patient. We reviewed with the patient the results of her multiple marker screen which indicated an increased risk for Down syndrome of 1/149. This is increased from her age-related risk of 1/658. We then reviewed that the bowel appeared echogenic on today's US. We discussed the possibility that the echogenic bowel is idiopathic (or normal variant) or related to swallowing of blo od. She reports no bleeding this . We also discussed that echogenic bowel is associated with aneuploidy, congenital infection, cystic fibrosis, or other abn ormalities of the bowel (e.g. meconium peritonitis, bowel atresia or bowel ischemia). Echogenic bowel is associated with a relative risk for trisomy 21 of 6.7. This finding incr eases your patient's risk for trisomy 21 in this to 5%. The couple have already had CF sheila er screening and Vanessa was not found to be a carrier. The risks, be nefits and limitations of maternal serum screening, cell-free DNA screening, ultrasound and genetic amniocentesis were thoroughly reviewed with the patient. We discussed the availability of amniocentesis for the precise diagnosis of chromosomal abnormalities including the associated procedure-related risk of loss of 1/300 to 1/500 . The patient declined amniocentesis and serologies today, but did opt to proceed with cfDNA screening today. We discussed the finding of the unilater al choroid plexus cyst. We discussed that choroid plexus cysts are seen in 1-2.5% of normal pregnancies as an isolated finding with no clinically significant impact. T hey can be unilateral or bilateral and result from the trapping of CSF within the choroid plexus. While MAINTENANCE TECHNICIAN 2ND SHIFT can be associated with a slight increase in the risk for Trisomy 18, given Vanessa's quad screen that returned low risk for T18, her risk remains low and this most likely represents a normal variant and requires no additional follow-up. We then reviewed that the small appeared small on today's US. WE reviewed that this can be a normal finding if it is transient, but persistently small stomach, particularly if accompanied by polyhydramnios, would suggest a functional or mechanical obstruction to passage of amniotic fluid into the stomach. Therefore, serial assessment is recommended and a repeat US has been shell eduled here in 3 weeks to re-evaluate growth and anatomy. Return to primary provider for continued care. Thank you for the opportunity to partici brandi in the care of this patient. If you have questions regarding today's evaluation or if we can be of further service, please contact the [facility]. anomalies may be present but not detected I spent a total of 37 minutes on the trip e of this encounter in the care of Vanessa Mary, includin minutes reviewing the patient's chart, 25 minutes in direct patient contact, 7 minutes documenting in the ct dical record. Please see note for details. IMPRESSION 1) Mckeon intrauterine at 1 8w 3d gestational age. 2) A left choroid plexus cyst is noted. The stomach appears small in 3 dimensions and the bowel appears echogenic. Otherwise, none of the anomalies commonly detected by ultrasound were raquel dent in the detailed anatomic survey described above, although evaluation of anatomy was suboptimal as noted above. 3) Growth parameters and estimated weight were consistent with an appropriate for gestation age pattern of growth. 4) The amniotic fluid volume appeared no rmal. [facility] documented in this encounter Visit Diagnoses Diagnosis History of placenta abruption documented in this encounter Care Teams President Educational Institution Relationship Specialty [facility] Date [facility]21 [place] [address] [place] [address] Mallory Srinivasan Assigned OBGYN Provider 02/22/21 04/11/21 documented as of this encounter
--- OUTSIDE RECORDS SUMMARY | 2022-07-01 17:50 | XMS_ITS | Encounter Summary ---
:1990 Author Organization [employer] Address [address] [place] [address] Care Team Providers Name Role Phone [facility], [facility] Primary Care Provider [phone] Reason for Referral Diagnostic Imaging Ultrasound (Routine) - Closed Specialty Diagnoses / Procedures Referred By Contact Refer red To Contact Diagnoses related condition, antepartum History of placenta abruption Ur Maternal Med Procedures [facility] US OB Complete 1st Tri Single [address] [facility] [address] [place], [place] [address] Referral ID Status Reason Start Date Expiration Date Visits Requ ested Visits Authorized [id number] Closed 02/02/2021 02/02/2022 1 1 Reason for Visit Diagnostic Imaging Ultrasound (Routine) - Closed Specialty Diagnoses / Procedures Referred By Contact Refer red To Contact Diagnoses related condition, antepartum History of placenta abruption Ur Maternal Med Procedures [facility] US OB Complete 1st Tri Single [address] [place], [place] [address] Referral ID Status Reason Start Date Expiration Date Visits Requ ested Visits Authorized [id number] Closed 02/02/2021 02/02/2022 1 1 Encounter Details Date Type Department Care Team Description 02/12/2021 Hospital Encounter [facility] Kandy Falk DO [address] [facility] [address] [place], [place] [address] related condition, antepartum; Maternal Conor, Kelly, MD [address] [place] [address] History of placenta abruption Medicine [place] Mallroy Srinivasan [place] [address] [place] [address] Social History Tobacco Use Types Packs/Day [...] Name Priority Date/Time Associated Diagnosis Comme nts [facility] US OB COMPLETE Routine 02/12/2021 11:13 AM relat ed Results for this 1ST TRI SINGLE CDT condition, procedure are in antepartum the results History of placenta section. abruption documented in this encounter Results [facility] US OB Complete 1st Tri Single (02/12/2021 11:13 AM CDT) Anatomical Region Laterality Modality Ultrasound Specimen (Source) Anatomical Collection Method Collection Time Re ceived Time Location / / Volume Laterality 02/12/2021 10:34 AM CDT Impressions 02/12/2021 11:53 AM CDT IMPRESSION 1) There is a live jennings intrauterin e . 2) [place] rump length consistent with est ablished dates at 10w5d gestational age 3) heart rate normal for gestation al age. 4) Normal appearing yolk sac and gestati onal sac. Narrative 02/12/2021 11:53 AM CDT 1st Trim Pat. Name: VANESSA MARY Study Date: 02/12/2021 10:34am Pat. 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 V iew: Sufficient Jennings . Number of fetuses: 1 DATING ? Date ?Details ?Gest. age ?JAIME LMP ?11/23/2020 ?Cycle: LMP date uncertain ? 11 w + 4 d ? 08/30/2021 Prior assessment ? GA: 8 w + 3 d ?10 w + 5 d ? 09/05/2021 U/S ? 02/12/2021 ?based upon CRL ? 11 w + 1 d ? 09/02/2021 GENERAL EVALUATION Cardiac activity present. Placenta posterior. Cord vessels normal insertion. Amniotic fluid normal amount. BIOMETRY YS ?3.1 ?mm FHR ?154 ? bpm CRL ? 42.3 ? mm ?11w 1d ?Hadlock ANATOMY The following structures appear normal: Cranium. Face. Abdominal wall. Bladder. Arms. Legs. The following structures could not be vi sualized: Stomach. MATERNAL STRUCTURES Cervix ?Visualized ? Appearance: Appears Closed ? Approach - Transabdominal Right Ovary ?Not visualized Left Ovary ?Not visualized RECOMMENDATION Thank-you for referring your patient for a viability ultrasound. Your patient was also seen today for a Maternal- Medicine consultation which is documented separately. I discussed the results of the ultrasoun d with the patient. Vanessa will let us know if she desires a nuchal translucency ultrasound. Comprehensive anatomic ultrasound is scott nned in our [place] office at 18 weeks. Return to primary provider for continued care. If you have questions regarding today's evaluation or if we can be of further service, please contact the [facility] Center. anomalies may be present but not detected Procedure Note Mallory Srinivasan MD - 02/12/2021For matting of this note might be different from the original. 1st Trim Pat. Name:Jud MARY Date:03/2021 10:34am Pat. NO: [id number] MD:January [facility]Christine Harris RDMS :1990Age:30 INDICATION Poor Obstetric History, Isoimmunization METHOD Transabdominal ultrasound examination. V iew: Sufficient Jennings . Number of fetuses: 1 DATING Date Details Gest. age JAIME LMP 11/23/2020 Cycle: LMP date uncertain 11 w + 4 d 08/30/2021 Prior assessment 01/27/2021 GA: 8 w + 3 d 10 w + 5 d 09/05/2021 U/S 02/12/2021 based upon CRL 11 w + 1 d 09/02/2021 GENERAL EVALUATION Cardiac activity present. Placenta posterior. Cord vessels normal insertion. Amniotic fluid normal amount. BIOMETRY YS 3.1 mm FHR 154 bpm CRL 42.3 mm 11w 1d Hadlock ANATOMY The following structures appear normal: Cranium. Face. Abdominal wall. Bladder. Arms. Legs. The following structures could not be vi sualized: Stomach. MATERNAL STRUCTURES Cervix Visualized Appearance: Appears Closed Approach - Transabdominal Right Ovary Not visualized Left Ovary Not visualized RECOMMENDATION Thank-you for referring your patient for a viability ultrasound. Your patient was also seen today for a Maternal- Medicine consultation which is documented separately. I discussed the results of the ultrasoun d with the patient. Vanessa will let us know if she desires a nuchal translucency ultrasound. Comprehensive anatomic ultrasound is scott nned in our [place] office at 18 weeks. Return to primary provider for continued care. If you have questions regarding today's evaluation or if we can be of further service, please contact the [facility]. anomalies may be present but not detected IMPRESSION 1) There is a live jennings intrauterin e . 2) [place] rump length consistent with est ablished dates at 10w5d gestational age 3) heart rate normal for gestation al age. 4) Normal appearing yolk sac and gestati onal sac. Katie Pinto DO [facility] US ORDERABLES documented in this encounter Visit Diagnoses Diagnosis related condition, antepartum History of placenta abruption documented in this encounter Care Teams Pricing Associate Relationship Specialty Start Date End Date Clinic, [facility] PCP - General 02/11/21 [address] [place] [address] documented as of this encounter
--- OUTSIDE RECORDS SUMMARY | 2022-07-01 17:50 | XMS_ITS | Encounter Summary ---
:1990 Author Organization [facility] Address [facility]ly [facility] [place] [address] Care Team Providers Name Role Phone Clinic, [facility] Primary Care Provider Reason for Visit Reason Comments Genetic Counseling encounter for scre ening/history of placental abruption (Routine) - Closed Specialty Diagnoses / Procedures Referred By Contact Refer red To Contact Diagnoses related condition, antepartum History of placenta abruption [facility] [address] [place], [place] [address] Referral ID Status Reason Start Date Expiration Date Visits Requ ested Visits Authorized [id number] Closed 02/02/2021 02/02/2022 1 1 Encounter Details Date Type Department Care Team Description 02/12/2021 Office Visit [facility] Frannie Pinto DO [address] [id number] Encounter for other genetic testing of f emale for procreative management (Primary Dx); Maternal Kelly Perdomo MD [address] [id number] related condition, antepartum; Medicine [place] Mallory Srinivasan History of placenta abruption [place] Lori Barrera GC [address] [facility] [address] [place], [place] [address] [address] [place], [place] [address] Social History Tobacco Use Types Packs/Day Years Used Date Never Assessed Sex Assigned at Date Recorded Not on file COVID-19 Exposure Response Date Recorded In the last month, have you been in contact with No / Unsure 02/12/2021 9:18 AM CDT someone who was confirmed or suspected to have Coronavirus / COVID-19? documented as of this encounter Progress Notes Lori Barrera, GC - 02/12/2021 9:30 AM CDT [facility] Genetic Counseling Consult Patient: Vanessa Mary Date of : 1990 Date of Service: 02/12/21 Vanessa Mary was seen at [facility] for genetic consultation to discuss her history of delivery due to placental abruption followed by demise, anti-[place] antibodies, and to discuss routine aneuploidy screening. Vanessa was accompanied by her partner, Yusuf, to today's visit. Impression/Plan: 1. Vanessa had a genetic counseling consultation to discuss her history of delivery due to placental abruption followed by demise, anti- [place] antibodies, and to discuss routine aneuploidy screening. 2. Vanessa was undecided at this time about moving forward with screening for aneuploidy. She is leaning toward first trimester analyte screening with a nuchal translucency ultrasound. However, she wanted to reach out to her insurance company to ask about coverage for non-invasive testing (cell- free DNA) as well. She was provided with CPT codes for NIPT along with my contact information. I requested that if Vanessa has opted to move forward with screening, she contacts me prior to that appointment to undergo consent and to schedule her NT ultrasound if desired. 3. Vanessa's partner, Yusuf, has already undergone genotyping for [place] and [place]. He was not found to have [place] antigen, so the fetus is not at risk for associated hemolytic disease of the fetus andnewborn. 4. Vanessa and Yusuf opted to pursue fundamental plus carrier screening, including fragile X, whichassesses carrier status for 14 conditions ([facility] through [facility]). Results are expected within 2-3 weeks, and will be available in [place]. We will contact the couple to discuss the results, and a copy with be forwarded to the office of the referring OB provider. Vanessa gave verbal permission to disclose results on her voicemail and Yusuf gave written permission to discuss his results with Vanessa. 5. Maternal serum AFP (single marker screen) is recommended after 15 weeks to screen for open neuraltube defects. A quad screen should not be performed. 6. Vanessa also underwent a consultation with the [facility] physician to discuss her history of placental abruption and loss. Please see corresponding documentation for additional details. History: /Parity: Age at Delivery: 31 year old JAIME: 09/05/2021, by Ultrasound Gestational Age: 10w5d ??? [place] reports that she smoke one half-pack of cigarettes per day. ??? Vanessa???s history is significant for one prior delivery at 35 weeks via emergency section for placental abruption. Unfortunately, Vanessa's son at that time. Vanessa did not undergo aneuploidy screening in the previous , per report. Please see physician consult note for further discussion of this history. Medical History: Vanessa has a significant history of grief and anxiety. She follows with a therapist who she reportsseeing once per week. She does not currently take medication for her symptoms, but feels that she ismanaging appropriately. 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 We briefly reviewed what red blood cell antigens are, how antibodies develop, and the risk for hemolytic disease of the fetus and . We reviewed that HDFN would only be aconcern if Yusuf were found to be heterozygous or homozygous for Gretchen antigen. Yusuf has already had antigen testing performed and was found to be Gretchen negative. Family History: A three-generation pedigree was obtained, and is scanned under the ???Media?? tab. The following significant findings were reported by Vanessa: ??? Vanessa's brother has a heart condition that he developed in his late 20s. Vanessa wasn't sure about the details regarding the condition but thinks it is acquired heart disease and not a structuraldifference or an arrhythmia. However, if her brother has heart concerns in his 20s (early for symptoms to appear) this history could increase Vanessa's risk for similar symptoms. I encouraged her to share this information with her primary care provider to ensure appropriate screening. ??? Vanessa's mother is adopted and her family history is unknown. ??? Vanessa has one paterna uncle who from lung cancer at 56. His was a heavy smoker formany years. ??? Vanessa's partner, Yusuf, is 32 and healthy. He has a brother and a sister who both have A.S. syndrome. This is not a condition that I have heard of before and he wasn't sure of the full name. He describes it as a form of myalgia or arthritis. His mother has the condition as well. The descriptionof the condition sounds like Antisynthetase syndrome. This is a multifactorial condition which meansthat there are likely multiple underlying genetic components along with environmental and other unidentified factors that contribute to the condition's development. Yusuf may be at an increased risk for the condition. He shared that his primary care provider is already aware of the history and is planning to screen him for the condition. ??? Yusuf has a paternal uncle who has Jc syndrome. Jc syndrome is a genetic condition characterized by intellectual disability, supravalvular aortic stenosis, unique personality traits, and distinct facial features. Not all individuals with Jc syndrome have all features. Learning problems likely focus on visual-spatial tasks but they are often gifted in language and music. Their unique personality is often described as over-friendly. In infancy hypercalcemia is often found. Jc syndrome is caused by a deletion on chromosome 7 (7q11.23). Most cases of Jc syndrome aresporadic (with no family history) but less commonly, the syndrome can be inherited in an autosomal dominant pattern. There is no other family history of the condition and therefore recurrence risk is low. Otherwise, the reported family history is negative for multiple miscarriages, stillbirths, defects, intellectual disability, known genetic conditions, and consanguinity. Carrier Screening: The patient reports that she and the father of the have ancestry: ?? Cystic fibrosis is an autosomal recessive genetic condition that occurs with increased frequency in individuals of ancestry and carrier screening for this condition is available. In addition, screening in the [facility] includes cystic fibrosis. Expanded carrier screening for mutations in a large panel of genes associated with autosomal recessive conditions including cystic fibrosis, thalassemias, hearing loss, spinal muscular atrophy, and others, is now available. We also reviewed that expanded carrier screening can assess for common X-linked recessive disorders such as Fragile X syndrome. We discussed that expanded carrier screening is designed to identify carrier status for conditions that are primarily childhood or adolescent onset. Expanded carrier screening does not evaluate for adult-onset conditions such as hereditary cancer syndromes, dementia/ Alzheimer's disease, or cardiovascular disease risk factors. Additionally, expanded carrier screening is not comprehensive for all known genetic diseases or inherited conditions. This is a screening test, and residual carrier status risk figures will be provided to the patient after results become available. Carrier screening is not meant to diagnose the patient with a condition, and generally carriers are asymptomatic. However, certain genes may confer increased risks for various health concerns in carriers (GIDEON, FMR1). ?? The patient elected to pursue carrier screening today. Her blood was drawn for fundamental plus carrier screening and sent to [facility]. We will contact her when these test results become available, and a copy of these results will be relayed to her primary OB provider. Risk Assessment for Chromosome Conditions: We explained that the risk for chromosome abnormalities increases with maternal age. We discussed specific features of common chromosome abnormalities, including Down syndrome, trisomy 13, trisomy 18, and sex chromosome conditions. ??? - At age 31 at midtrimester, the risk to have a baby with Down syndrome is 1 in 597. ??? - At age 31 at midtrimester, the risk to have a baby with any chromosome abnormality is 1 in 299. Testing Options: We discussed the following options: First trimester screening ?? First trimester ultrasound with nuchal translucency and nasal bone assessments, maternal plasma hCG, LIDIA-A, and AFP measurement ?? Screens for trisomy 21, trisomy 13, and trisomy 18 ?? Cannot screen for open neural tube defects; maternal serum AFP after 15 weeks is recommended Non-invasive Testing (NIPT) ?? Maternal plasma cell-free DNA testing; first trimester ultrasound with nuchal translucency and nasal bone assessment is recommended, when appropriate ?? Screens for trisomy 21, trisomy 13, trisomy 18, and sex chromosome aneuploidy ?? Cannot screen for open neural tube defects; maternal serum AFP after 15 weeks is recommended Chorionic villus sampling (CVS) ?? Invasive procedure typically performed in the first trimester by which placental villi are obtained for the purpose of chromosome analysis and/or other genetic analysis ?? Diagnostic results; >99% sensitivity for chromosome abnormalities ?? Cannot test for open neural tube defects; maternal serum AFP after 15 weeks is recommended Genetic Amniocentesis ?? Invasive procedure typically performed in the second trimester by which amniotic fluid is obtained for the purpose of chromosome analysis and/or other genetic analysis ?? Diagnostic results; >99% sensitivity for chromosome abnormalities ?? AFAFP measurement tests for open neural tube defects Comprehensive (Level II) ultrasound: Detailed ultrasound performed between 18- 22 weeks gestation toscreen for major defects and markers for aneuploidy. We reviewed the benefits and limitations of [...] a pleasure to be involved with Vanessa???s viik. [id number]-[id number] time of the meeting was 45 minutes. Lori Barrera MS, [facility] Licensed Genetic Counselor [facility] Maternal Medicine [email or web address] [phone] documented in this encounter Plan of Treatment Not on filedocumented as of this encounter Results [facility] Carrier Screen (02/12/2021 12:08 PM CDT) [facility] gist Method Time Signature Lab Scanned COUNSYL MISYS Result [facility] SCR-Scanned Specimen (Source) Anatomical Collection Method Collection Time Re ceived Time Location / / Volume Laterality Blood 02/12/2021 12:08 PM CDT Mallory Srinivasan LAB - BLOOD ORDERABLES Performing Organization Address City/State/ZIP Code Phon e Number MISYS documented in this encounter Visit Diagnoses Diagnosis Encounter for other genetic testing of f emale for procreative management - Primary related condition, antepartum History of placenta abruption documented in this encounter Care Teams Safety Engineer Pressure Vessels Relationship Specialty Start Date End Date Clinic, [facility] PCP - General 02/11/21 [address] [place] [id number] documented as of this encounter
--- OUTSIDE RECORDS SUMMARY | 2022-07-01 17:50 | XMS_ITS | Encounter Summary ---
:1990 Author Organization [facility] Address [address] [place] [address] Care Team Providers Name Role Phone Unavailable Primary Care Provider Unavailable Reason for Referral (Routine) - Closed Specialty Diagnoses / Procedures Referred By Contact Refer red To Contact Diagnoses related condition, antepartum Gina Lee [facility] [address] [place] [address] Referral ID Status Reason Start Date Expiration Date Visits Requ ested Visits Authorized [id number] Closed 01/30/2021 01/30/2022 1 1 Encounter Details Date Type Department Care Team Description 01/30/2021 Transcribe Orders [facility] Jesus Ap ril related Maternal [facility] condition, [facility] MEDICAL antepartum (Primary [place] [address] Dx) [address] [place], [place] [address] [address] [place], [place] [phone] (Work) [phone] Social History Tobacco Use Types Packs/Day Years Used Date Never Assessed Sex Assigned at Date Recorded Not on file documented as of this encounter Plan of Treatment Scheduled Referrals Name Type Priority Associated Diagnoses Order S chedule [facility] Referral Routine related Order ed: 01/30/2021 REFERRAL- condition, antepartum documented as of this encounter Visit Diagnoses Diagnosis related condition, antepartum - Primary documented in this encounter
--- OUTSIDE RECORDS SUMMARY | 2022-07-01 17:50 | XMS_ITS | Encounter Summary ---
:1990 Author Organization [place] Address [address] [place] [address] Care Team Providers Name Role Phone [facility], [facility] Primary Care Provider Reason for Referral Diagnostic Imaging Ultrasound (Routine) - Closed Specialty Diagnoses / Procedures Referred By Contact Refer red To Contact Diagnoses History of placenta abruption Mallory Srinivasan MFM US Comprehensive Single MFM US Comprehensive Single F/U [address] [place] [address] Referral ID Status Reason Start Date Expiration Date Visits Requ ested Visits Authorized [id number] Closed 02/12/2021 02/12/2022 1 1 Reason for Visit Reason Comments Ultrasound 1st tri U/S-h/o placental ab ruption 35 weeks Consult MFM-h/o placental abruption 35 weeks (Routine) - Closed Specialty Diagnoses / Procedures Referred By Contact Refer red To Contact Diagnoses related condition, antepartum [place] [address] [place] [address] Referral ID Status Reason Start Date Expiration Date Visits Requ ested Visits Authorized [id number] Closed 02/03/2021 02/03/2022 1 1 Encounter Details Date Type Department Care Team Description 02/12/[address] [facility] Krista Edwards [facility] [address] [place] [address] History of placenta abruption (Primary D x); Maternal Conor, Kelly, MD [address] [place] [address] related condition, antepartum [facility] Center Tad Srinivasanah Israel Larose [address] [place], [place] [address] Social History Tobacco Use Types Packs/Day Years Used Date Never Assessed Sex Assigned at Date Recorded Not on file COVID-19 Exposure Response Date Recorded In the last month, have you been in contact with No / Unsure 02/12/2021 9:18 AM CDT someone who was confirmed or suspected to have Coronavirus / COVID-19? documented as of this encounter Progress Notes Mallory Srinivasan MD - 02/12/2021 11:00 AM CDT Images from the original note were not included. [facility] Clinic Consult Note Date: 02/12/21 Reason for consult:?History of complete placental abruption and demise (03/2020) Referring Provider: Gina Edwards PA-C HPI:?Vanessa Mary is 30 year old a 10w5d by 8w3d US who presents to clinic for consultation regarding history of fulminant abruption with demise in March 2020 as well as tobacco use Feels well. Denies leakage of fluid or vaginal bleeding. Reports some nausea. No emesis. She states that she has been doing ok from a mental health perspective. She tried sertraline for a little while what happened last summer but she had extremely bad nausea with this and discontinued it. She has found therapy helpful and sees her therapist weekly. She also notes her , Yusuf and her talk a lot. Yusuf accompanies her to this visit today. Regarding her delivery last year, Vanessa remembers that she woke up on 03/22/2020 at 0200 and she used the bathroom, she noted slight bleeding in the toilet and then she went back to bed. She then felta pop sensation, and felt a warm feeling, noted a lot of vaginal bleeding, so she went to the nearest ED and had a delivery under general anesthesia. They named their baby boy Stella. Per outside records, 03/22/2020: Vanessa had an emergency after presenting with extremely heavy vaginal bleeding and FHT in the 70's at 35w3d. Per the operative report, postop diagnosis was complete placental abruption with large amount of clot in the uterus. Baby had APGARs of 0 and 0 at 1 and 5 min. She also had a hemorrhage and received 2u pRBCs. She did then have a positive anti-Gretchen antibody with a titer <1, but her partner was screened and was negative. Yusuf is the father of both last and current . She does not have other medical comorbidities, does not take any medication aside from PNV, tylenol PM, colace. She smoeks 0.5 PPD, x15 years. Yusuf also smokes. Both are trying to quit but Angeles was told to wait until the second trimester to quit and her provider is looking into hypnotherapy, or other ways that could help her quit. Regarding the Covid vaccine, neither plan to get it - Angeles does not really feel comfortable with it. OB History: # Outcome Date GA Lbr Tj/2nd Weight Sex Delivery Anes PTL Lv 2 Current 1 03/22/20 35w3d CS-Unspec FD Complications: Abruptio Placenta STOCK CHECKERER History: - LMP: Patient's last menstrual period was 11/23/2020. - History of abnormal Pap smear: Yes: LSIL, HPV high risk positive 01/2021 Past Medical History: History of fulminant placental abruption with demise History of delivery Tobacco use disorder Short interpregnancy interval Past Surgical History: Primary delivery Social History: Lives with Yusuf. 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 Family History: She denies a family history of motor/intellectual impairment, stillbirth, genetic or chromosome abnormalities or congenital anomalies. No known family history of a bleeding or clotting disorder. She has one brother who maybe has some heart problems but as he is uninsured, he has not had this evaluated. Her mom and dad are healthy. Partner History: He denies a family history of motor/intellectual impairment, stillbirth, genetic or chromosome abnormalities or congenital anomalies. Per the genetic counselor's note, Yusuf has a paternal uncle who has Jc syndrome, which was reviewed with counselor (see their note from today) Medications: vitamin Tylenol PM as needed Colace Allergies: NKDA Data Reviewed: ??? : 01/27/21, outside records: o ABO Group: not available in records, Rh type: not available, antibody screen: anti-gretchen positive with titer <1 o Hemoglobin 13.9 mg/dL, hematocrit 40 %, MCV 91 fL, platelets 302 thou/??L o Hemoglobin electrophoresis: not performed o VDRL/HepBsAg/HIV: non-reactive x3 o Rubella/Varicella IgG: rubella immune / varicella not performed, not discussed today o Gonorrhea/Chlamydia: negative x2* o Urine culture: negative o Hemoglobin A1C: not performed o GCT: not yet performed o Pap smear: 01/28/21 HPV positive, LSIL A) PLACENTA, SECTION DELIVERY: 1. Third trimester jennings placenta with the following characteristics: ? a. Weight: 403 grams (25-50th percentile for 35+3 weeks gestational age) ? b. Membranes/ surface: ?Mildly increased subchorionic fibrin ?Negative for chorioamnionitis ? c. Umbilical cord: ?Three vessel cord ?Negative for funisitis ? d. Disc/Villi: ?Chorionic villi consistent with gestational age ?Negative for??villitis ?Placental disc with infarcts, involving <5% of the disc ?Intervillous thrombus, involving <5% of the disc 2. Clinically complete placental abruption Scanned record from [facility] - 02/06/2021 Immunohematology Reference Laboratory Result for patient: Titer of anti-K is <1 using sample drawn 02/03/2021 Results for Yusuf Mary: Phenotyping performed on the patient indicates none of his offspring should inherit the K gene and type as K antigen positive. Ultrasound: ??? Today's ultrasound at [facility] - see imaging tab Physical examination was deferred at this time. Summary/Recommendations: 30 year old is a at 10w5d by 8w3d US with history of fulminant placental abruption and demise as well as tobacco use disorder. Complete placental abruption Expressed sympathy for what happened last year and loss of her baby Stella. Discussed with patient and that most likely this will not have the same outcome but that unfortunately thatafter having an abruption, the risk of having it happening again is higher than a woman who had not had an abruption in the past. We discussed that unfortunately there are no known preventive strategies unless the woman has modifiable risk factors such as tobacco or cocaine use or poorly controlled hypertension. Encouraged tobacco cessation and Vanessa is aware that this risk factor is associated with abruption. The baseline incidence of abruption has been reported to be 0.4-1.3 percent. Literature suggests that women with a previous placental abruption are at increased risk of recurrence in a subsequent with an incidence of 5-15 percent (a seven-fold higher risk). The more significant the abruptionthe greater the recurrence risk. After 2 previous abruptions the risk of a third is up to 25%. Testing for thrombophilias is not indicated. Abruption is seen more frequently in women who have had otherpoor obstetrical outcomes such as preeclampsia and growth restriction. Discussed that considering her tragic outcome, we recommend increased surveillance with a monthly M ultrasound starting at 24 weeks and continuing monthly until delivery. She prefers these US to be done in the [place] office, which will be arranged for her. Tobacco use disorder We discussed that tobacco use in is associated with many risks to mother and fetus. In addition to the better-known risks to the patient, including cardiovascular and pulmonary risks, the offspring of patients who smoke in are at higher risk of growth restriction, placental ab ruption, stillbirth, asthma, and increased rates of sudden infant syndrome (SIDS). Children who live in homes of smokers are also at increased risk of asthma and SIDs. We recommend complete cessation of tobacco use in . The use of pharmacotherapy to assist in smoking cessation can be considered. Nicotine replacement therapy is recommended, but has not yet been shown to be effective in the population in limited studies. Buproprion may also be used to aide in cessation. Again we acknowledge how difficult quitting can be but how important it is for Vanessa. Anti-Gretchen antibody We briefly discussed anti-Princeton antibody. Discussed that following transfusion with Princeton-positive blood, individuals lacking a specific Princeton antigen may develop antibodies against Princeton antigens when transfused with blood containing that antigen or being exposed to red cells bearing that antigen. If thefetus has the Gretchen antigen in their blood, an antigen negative mother recognizes the foreign antigenand bj an IgM response followed by an IgG response. In a subsequent when cells enter maternal circulation she produces IgG that crosses the placenta and attacks the erythrocytes that carry the paternal positive antigen leading the hemolysis and anemia. The Gretchen antigen also affects erythropoiesis. As Yusuf is negative for the Princeton antigen, there is nothing further to do as this fetus will not have inherited the antigen and will not be at risk for hemolytic disease. Please note that this management scheme assumes that the patient's partner is indeed the father of the baby. Short interpregnancy interval Inter- interval is defined as the interval between and subsequent conception. A shortIPI, usually defined as <6-18 months has been adverse outcomes, especially an interval of <6 months. Adverse outcomes include delivery, low birthweight, congenital anomalies, placental abruption and maternal anemia. There may be an increased risk for uterine rupture in patients who have had a prior . Optimal IPI is 18-24 months for most women. Recommendations: - Continue to encourage complete smoking cessation. - Use of nicotine replacement therapy as clinically indicated - Referral to quit hotline (1-858-PHQIMFJ), group therapy, or support provider. - Review calling guidelines at each visits regarding the possible signs or symptoms of abruption including contractions, abdominal pain, vaginal bleeding or a change in movement patterns - Targeted anatomical survey at 18-20 weeks??? gestation with MFM - Ultrasound for growth starting at 24 weeks and monthly thereafter until delivery with MFM - Weekly BPPs at 32 weeks, can be done with primary OB - Recommend delivery at 39 weeks, unless indicated sooner - Close monitoring for the development of preeclampsia - Routine screening for anemia - Iron and folate supplementation, as indicated - The blood bank should be alerted upon her admission as there can be a significant delay in available blood should transfusion be necessary. If she is at increased risk for needing transfusion she should be typed and crossed. - Mode of delivery was not discussed today We also discussed the safety of the mRNA Covid vaccine and that overall the risks of the virus, particularly to patients, are much greater than potential vaccine side effects. The pro and unknowns of Covid vaccination and safe practices to minimize infection (masking, social distancing, hand washing, avoidance of large gatherings) were also reviewed. She will consider as progressesand is encouraged to ask more questions of her providers along the way. Patient seen and discussed with Dr. Mallory Dumont MD, [facility] PGY-2 02/12/2021 MFM Attending Attestation I personally examined and evaluated Vanessa Mary with Dr. Dumont and agree with Dr. Dumont's findings, assessment and plan of care as documented in the above note. I personally reviewed vital signs,ultrasound images and medications. See note for details; I have made the necessary edits/additions. Mallory Srinivasan MD Health Promotion Educator, OPTICAL MECHANIC APPRENTICE Maternal- Medicine [email or web address] [phone] (Main MFM Office) [phone] or [phone] (for 24 hour MFM questions) [phone] (Pager) Time Spent on this Encounter I spent a total 60 minutes on the encounter with Vanessa Mary today More than 50% of my time was spent on counseling and/or coordination of care, with a total of 20 minutes was spent face to face with Vanessa Mary today - Counseling the patient and/or family regarding: diagnosis, diagnostic results, prognosis and risksand benefits of management options - Coordination of care with the: nurse and patient and her partner and the picker and sorter load and unload Date of service (when I saw the patient): February 12, 2021 documented in this encounter Nursing Notes Mallory Rodriguez, SRAVANI - 02/12/2021 11:00 AM CDT Vanessa here with FOB for 1st tri U/S and MFM consult due to h/o placental abruption and demise at 35 weeks. Pt reports seeing therapy weekly and that is helping her. Dr. Srinivasan and Dr. Dumont in to see pt. See consult note. Pt to lab for carrier screening and having this done as well. Pt scheduled for 18 week comp and left amb and stable. Mallory Rodriguez, RN documented in this encounter Plan of Treatment Not on filedocumented as of this encounter Results [facility] US Comprehensive Single (04/07/2021 9:27 AM CDT) Anatomical Region Laterality Modality Ultrasound Specimen (Source) Anatomical Collection Method Collection Time Re ceived Time Location / / Volume Laterality 04/07/2021 8:42 AM CDT Impressions 04/07/2021 2:04 PM CDT IMPRESSION 1) Jennings intrauterine at 1 8w 3d gestational age. [...] MARY Study Date: 04/07/2021 8:42am Pat. NO: [id number] Referring ??: KRISTA EDWARDS Site: [facility] Cio: Rose Myles RDMS : 1990 Age: 30 INDICATION History of abruption with demise a t 35 weeks. METHOD Transabdominal ultrasound examination. V iew: Sufficient Jennings . Number of fetuses: 1 DATING ? Date ?Details ?Gest. age ?JAIME LMP ?11/23/2020 ?Cycle: LMP date uncertain ? 19 w + 2 d ? 08/30/2021 Prior assessment ? / ? GA: 8 w + 3 d [...] 0 lb 9 ?oz EFW by ?Hadlock ([id number]) Head / Face / Neck Biometry: Party Supply Specialist ? 5.8 ? mm CM ?2.8 ? mm Nasal bone ? 5.3 ? mm Nuchal fold ? 3.6 ? mm Abdomen Biometry: Stomach ap ? 5.1 ?mm ? 4% ?Ramirez Stomach tr ? 4.1 ? mm ?<1% ?James Stomach long ? 8.8 ? mm ?<1% ?James ANATOMY Abdomen ? Stomach: small stomach The [...] cava. Inferior vena cava. 3-vessel view. ? 8-ihyrfv-eaoalsj view. Cardiac position. Cardiac size. Cardiac rhythm. [...] RECOMMENDATION We discussed the findings on today's [facility] with the patient. We reviewed with the patient the results of her multiple marker screen which indicated an increased risk for Down syndrome of 1149. This is increased from her age-related risk of 658. We then reviewed that the bowel appeared [...] of CSF within the choroid plexus. While SUPERVISOR ASBESTOS REMOVAL can be associated with a slight increase [...] patient contact, 7 minutes documenting in the wa dical record. Please see note for details. Procedure Note Mora Hi MD - 04/07/2021Formatt ing of this note might be different from the original. Comprehensive PatTony Name:Jud MARY Date: 8:42am Pat. NO: [id number] MD:JANUARY ARACELI SOTO Site:RidgesSonographer:Roes Myles RD MS :1990Age:30 INDICATION History of [...] 0 lb 9 oz EFW by Hadlock ([id number]) Head / Face / Neck Biometry: Party Supply Specialist 5.8 mm CM 2.8 mm Nasal bone [...] vena cava. Inferior vena cava. 3-vessel view. 4-gqifgg-xvukazq view. Cardiac position . Cardiac size. Cardiac [...] RECOMMENDATION We discussed the findings on today's [facility] with the patient. We reviewed with the patient the results of her multiple marker screen which indicated an increased risk for Down syndrome of 149. This is increased from her age-related risk of . We then reviewed that the bowel appeared [...] of CSF within the choroid plexus. While SUPERVISOR ASBESTOS REMOVAL can be associated with a slight increase [...] recommended and a repeat US has been hsell eduled here in 3 weeks to re-evaluate [...] patient contact, 7 minutes documenting in the wa dical record. Please see note for details. IMPRESSION 1) Jennings intrauterine at 1 8w 3d gestational age. [...] fluid volume appeared no rmal. Mallory Srinivasan [facility] US ORDERABLES documented in this encounter Visit Diagnoses Diagnosis History of placenta abruption - Primary related condition, antepartum History of placenta abruption documented in this encounter Care Teams Community Outreach Advocate Relationship Specialty Start Date End Date Clinic, [facility] PCP - General 02/11/21 [address] [place] [address] documented as of this encounter
--- OUTSIDE RECORDS SUMMARY | 2022-07-01 17:50 | XMS_ITS | Encounter Summary ---
:1990 Author Organization [facility] Address [address] [place] [address]. [place] [address] Care Team Providers Name Role Phone Unavailable Primary Care Provider Unavailable Encounter Details Date Type Department Care Team Description 01/30/2021 [facility] Health Info [facility] Non-Provider [facility] [address] [place] [id number] Social History Tobacco Use Types Packs/Day Years Used Date Never Assessed Sex Assigned at Date Recorded Not on file documented as of this encounter Plan of Treatment Not on filedocumented as of this encounter Visit Diagnoses Not on filedocumented in this encounter
--- OUTSIDE RECORDS SUMMARY | 2022-07-01 17:50 | XMS_ITS | Encounter Summary ---
:1990 Author Organization [facility] Address [address] [place] [address] Care Team Providers Name Role Phone Unavailable Primary Care Provider Unavailable Reason for Visit Reason Comments SIMBA Nurse Line Encounter Details Date Type Department Care Team Description 12/19/2020 Clinical Communication Division of Mallory Wilson Nurse [facility] Internal Edward, RTonyNTony [facility], [facility] in [place], [place] [address] [place] [address] Social History Tobacco Use Types Packs/Day Years Used Date Smoking Tobacco: Never Assessed Sex Assigned at Date Recorded Not on file documented as of this encounter Miscellaneous Notes Telephone Encounter - Mallory Wilson R.N. - 12/19/2020 12:13 PM CST COVID-19 Nurse Line Screening ASSESSMENT Region Select appropriate region: : [place] Age Pathway Select approprite pathway: : Adult Have you had close contact* with a person who has a LABORATORY CONFIRMED case of COVID-19 in the past 14 days?: No (Continue Screening) In the last 48 hours, have you had a fever* OR symptoms that are unrelated to a preexisting illness?: New sore throat Have you received a COVID-19 vaccine in the last 72 hours? : No vaccine received (Continue Screening) Do you have any of the following urgent symptoms?: No urgent symptoms noted (Continue Screening) Have you tested positive for COVID-19 in the last 45 days?: No (Continue Screening) Are ALL the following criteria met: age between 18 to 75 yrs, main symptom is a sore throat with duration of 24 hrs to 7 days, onset of sore throat not associated with new upper respiratory symptoms*? : No, COVID testing is recommended (End Screening) Symptom Onset Date of symptom onset: 12/18/20 Testing Recommendation Endpoint Is testing recommended? : Recommended to test PLAN Endpoint recommendation: Screening positive, testing indicated, advised to be swabbed for COVID-19 Only , sent to [facility] located at [address] [place] [address]. The entrance is on the north side of the building. You must call [phone] during the hours of 7am to 6 pm (M-F) or 9 am to 4 pm (Sat and Sun) for an appointment time. You can also schedule via your Patient Online Services account. Testing hours are 9 am to 5 pm (M-F) and 9 am to 1 pm (Sat and Sun).When you arrive at the testing site: Remain in your vehicle and check-in by calling the number listed on the signage at the testing site or provided to you at the time you schedule your testing appointment. and Please avoid using public transportation per CDC recommendation. If you do not have personal transportation please self- quarantine until a personal transportation option is available. Care Points: -Wash hands frequently with soap and water for at least 20 seconds -If soap and water are not available, use a hand highway patrol commander -Avoid touching your eyes, nose and mouth. -Clean and disinfect high-touch surfaces routinely. -Wear a mask over your nose and mouth. A cloth face cover is not a substitute for social distancing -Continue to keep about 6 feet between yourself and others. -Avoid public areas and public transportation. -Find new ways to connect with family and friends, get support and share feelings. -Seek emergent care if any of the following occur Trouble breathing Bluish lips or face Persistent pain or pressure in the chest New confusion or inability to rouse. -Notify your regular care provider of any new or worsening symptoms. Symptomatic Carepoints: Separate yourself from others and stay in a specific sick room if able. Avoid sharing personal or household items. Rest. Hydrate. Take Acetaminophen/Ibuprofen as needed to control fever and muscles aches. Use over the counter medications as needed for other symptoms. 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
--- OUTSIDE RECORDS SUMMARY | 2022-07-01 17:50 | XMS_ITS | Encounter Summary ---
:1990 Author Organization [place] Address [facility] [place] [address] Care Team Providers Name Role Phone Unavailable Primary Care Provider Unavailable Reason for Referral Diagnostic Imaging Ultrasound (Routine) - Closed Specialty Diagnoses / Procedures Referred By Contact Refer red To Contact Diagnoses related condition, antepartum History of placenta abruption Ur Maternal Med Procedures MFM US OB Complete 1st Tri Single [address] [place], [place] [address] Referral ID Status Reason Start Date Expiration Date Visits Requ ested Visits Authorized [id number] Closed 02/02/2021 02/02/2022 1 1 (Routine) - Closed Specialty Diagnoses / Procedures Referred By Contact Refer red To Contact Diagnoses related condition, antepartum History of placenta abruption Ur Maternal Med [address] [place], [place] [address] Referral ID Status Reason Start Date Expiration Date Visits Requ ested Visits Authorized [id number] Closed 02/02/2021 02/02/2022 1 1 Encounter Details Date Type Department Care Team Description 02/02/2021 Orders Only [facility] Tana Landers Pregnan cy related condition, antepartum (Primary Dx); Maternal Medicine RN Duran ory of placenta abruption [facility] [address] [place], [place] [address] Social History Tobacco Use Types Packs/Day Years Used Date Never Assessed Sex Assigned at Date Recorded Not on file documented as of this encounter Plan of Treatment Scheduled Referrals Name Type Priority Associated Diagnoses Order S carmen [facility] Genetic Counseling Referral Routine related Expected: 02/16/2021 condition, antep artum (Approximate), History of placenta Expires: 08/04/2021 abruption documented as of this encounter Results [facility] US OB Complete 1st Tri Single (02/12/2021 11:13 AM CDT) Anatomical Region Laterality Modality Ultrasound Specimen (Source) Anatomical Collection Method Collection Time Re ceived Time Location / / Volume Laterality 02/12/2021 10:34 AM CDT Impressions 02/12/2021 11:53 AM CDT IMPRESSION 1) There is a live jennings intrauterin e . 2) [place] rump length consistent with est ablished dates at 10w5d gestational age 3) heart rate normal for gestation al age. 4) Normal appearing yolk sac and gestati onal sac. Narrative 02/12/2021 11:53 AM CDT 1st Trim Pat. Name: VANESSA MARY Study Date: 02/12/2021 10:34am Pat. NO: [id number] Referring ??MD: KRISTA EDWARDS Site: [facility] Clipper Counters: Christine Harris RD MS : 1990 Age: 30 INDICATION Poor Obstetric History, Isoimmunization METHOD Transabdominal ultrasound examination. V iew: Sufficient [place] . Number of fetuses: 1 DATING ? Date ?Details ?Gest. age ?JAIME LMP ?11/23/2020 ?Cycle: LMP date uncertain ? 11 w + 4 d ? 08/30/2021 Prior assessment ? / [...] anatomic ultrasound is scott nned in our [place] office at 18 weeks. Return to primary [...] Pat. Name:Jud MARY Date:03/2021 10:34am Pat. NO: [id number] MD:VONNIE SOTO [facility]Christine Harris RDMS :1990Age:30 INDICATION Poor Obstetric History, [...] anatomic ultrasound is scott nned in our [place] office at 18 weeks. Return to primary provider for continued care. If you have questions regarding today's evaluation or if we can be of further service, please contact the Maternal- Medicine Center. anomalies may be present but not detected IMPRESSION 1) There is a live jennings intrauterin e . 2) [place] rump length consistent with est ablished dates at 10w5d gestational age 3) heart rate normal for gestation al age. 4) Normal appearing yolk sac and gestati onal sac. Katie Pinto DO [facility] US ORDERABLES documented in this encounter Visit Diagnoses Diagnosis related condition, antepartum - Primary History of placenta abruption related condition, antepartum History of placenta abruption documented in this encounter
--- OUTSIDE RECORDS SUMMARY | 2022-07-01 17:50 | XMS_ITS | Encounter Summary ---
:1990 Author Organization [place] Address formerly [facility] [place] [address] Care Team Providers Name Role Phone Unavailable Primary Care Provider Unavailable Reason for Visit Reason Comments Genetic Counseling hx abruption @ 35 wks with c /s, Anti K antibody, depression/anxiety Ultrasound 1st tri Us-hx abruption @ 35 wks with c/s, Anti K antibody, depression/anxiety Consult MFM-hx abruption @ 35 wks [facility] c/s, Anti K antibody, depression/anxiety Encounter Details Date Type Department Care Team Description 02/06/2021 PRE VISIT [facility] Tana Landers, Genetic Counseling (hx Maternal Medicine RN abru ption @ 35 wks with [facility] c/s, Anti K antibody, [address] depression/anxiety); [place], [place] [address] Ultrasound (1st tri [phone] Us-hx abruption @ 35 wks with c/s, Anti K antibody, depression/anxi ety); Consult (MFM-hx abruption @ 35 wks with c/s, Anti K ant ibody, depression/anxi ety) Social History Tobacco Use Types Packs/Day Years Used Date Never Assessed Sex Assigned at Date Recorded Not on file documented as of this encounter Plan of Treatment Not on filedocumented as of this encounter Visit Diagnoses Not on filedocumented in this encounter
--- OUTSIDE RECORDS SUMMARY | 2022-07-01 17:50 | XMS_ITS | Clinical Summary ---
:1990 Author Organization [facility] Address [address] [place] [address] Care Team Providers Name Role Phone Unavailable Primary Care Provider Unavailable Source Comments Patient records contain information from all sites at [facility]. For routine questions regarding patient records, call [phone] during business hours, M-F 8:00 AM - 5:00 PM Central Time. Record requests for emergency care only can be directed to [phone] at any time.[facility] Social History Tobacco Use Types Packs/Day Years Used Date Smoking Tobacco: Never Assessed Sex Assigned at Date Recorded Not on file Plan of Treatment Health Maintenance Due Date Last Done Comments Cervical Cancer Screening 1990 HIV Screening 1990 Hepatitis C Screening 1990 COVID-19 Vaccine (#1) 1990 Hepatitis B Vaccines (2 of 07/03/2003 06/05/2003 3 - 3-dose series) Depression Screening 10/10/2021 (Annual PHQ-2) Influenza Vaccine (#1) 2022 09/29/2021, 08/22/2012, 08/22/2012 DTaP,Tdap,and Td Vaccines 06/24/2031 06/24/2021, 02/26/2020 , (5 - Td or Tdap) 08/22/2012, Additional history exists Pneumococcal vaccine (0-64 Aged Out No lo nger eligible years) based on patient 's age to complete this topic Insurance Payer Benefit Plan Subscriber ID Effective Dates Phone Address Type / Group [facility] [facility] CARE [id number] 2021-Lucila [phone] [address] Medicaid HMO t 5 [place] [address]
--- OUTSIDE RECORDS SUMMARY | 2022-07-01 17:50 | XMS_ITS | Encounter Summary ---
:1990 Author Organization [facility] Address [address] [place] [address] Care Team Providers Name Role Phone Unavailable Primary Care Provider Unavailable Encounter Details Date Type Department Care Team Description 12/19/2020 Admin Visit Department of Family Medicine, [address] [address] [facility] [phone] Social History Tobacco Use Types Packs/Day Years Used Date Smoking Tobacco: Never Assessed Sex Assigned at Date Recorded Not on file documented as of this encounter Plan of Treatment Not on filedocumented as of this encounter Visit Diagnoses Not on filedocumented in this encounter Additional Health Concerns Infection Onset Date Last Indicated Resolved Time COVID19 Pending 12/19/2020 12/19/2020 12/20/2020 12:47 AM PHYSICIAN VICE PRESIDENT documented as of this encounter
[2022-07-01] MEDS: 0.9 % SODIUM CHLORIDE 1000 ml 1,000 ML 500 ML IV (17:55)
[2022-07-01 17:58] LABS: Albumin* 4.5 g/dL (3.3-5.0); Chloride* 109 mmol/L (96-114); Potassium* 4.4 mmol/L (3.6-5.1); Sodium* 141 mmol/L (135-149)
[2022-07-01 18:01] LABS: Alanine Aminotransferase* 10 U/L (4-35); Alkaline Phosphatase* 75 U/L (40-150); Aspartate Amino Transferase* 37 U/L (12-35); Bilirubin Total* 0.2 mg/dL (0.1-1.5); Blood Urea Nitrogen* 10 mg/dL (5-24); Carbon Dioxide* 24 mmol/L (20-32); Creatinine* 0.7 mg/dL (0.5-1.5); Est. Creatinine Clearance* 95.01; Estimated Glomerular Filt Rate 118 ml/min; Glucose* 92 mg/dL (60-115); Total Protein* 6.9 g/dL (6.0-8.3)
[2022-07-01 18:02] LABS: Calcium* 9.2 mg/dL (8.4-10.6)
[2022-07-01 18:18] VITALS: BP 109/75; PULSE 91; RESP 16; O2SAT 97
[2022-07-01 18:26] LABS: HCG Qualitative Serum* Negative (Negative)
--- OUTSIDE RECORDS SUMMARY | 2022-07-05 07:35 | XMS_ITS | Encounter Summary ---
:1990 Author Organization [facility] Address [address] [place] [address] Care Team Providers Name Role Phone Unavailable Primary Care Provider Unavailable Reason for Visit Reason Comments COVID Inquiry Encounter Details Date Type Department Care Team Description 12/19/2020 Clinical Communication Central Appointment [facility] [place] Office in [facility] [address] [place] [address] Social History Tobacco Use Types Packs/Day Years [...] Because of symptoms, transfer patient to: : [place] COVID Nurse Line (End Screening) Symptom Onset Date of symptom onset: 12/18/20 Testing Recommendation Endpoint Is testing recommended? : Transferred to nursing call line Plan: Endpoint recommendation: Transferred to Nursing/COVID Line/Care Team *Reminder if sending patient for testing in [facility] or [facility], route encounter to the correct testing pool. ING AID SPECIALIST documented in this encounter Plan of Treatment Not on filedocumented as of this encounter Visit Diagnoses Not on filedocumented in this encounter
--- OUTSIDE RECORDS SUMMARY | 2022-07-05 07:35 | XMS_ITS | Encounter Summary ---
:1990 Author Organization [place] Address [facility] [place] [address] Care Team Providers Name Role Phone Unavailable Primary Care Provider Unavailable Reason for Referral (Routine) - Closed Specialty Diagnoses / Procedures Referred By Contact Refer red To Contact Diagnoses related condition, antepartum Gina Lee [facility] [address] [place] [address] Referral ID Status Reason Start Date Expiration Date Visits Requ ested Visits Authorized [id number] Closed 02/03/2021 02/03/2022 1 1 Encounter Details Date Type Department Care Team Description 02/03/[address] [facility] Arcenio Lee related Maternal [facility] antepartum (Primary [place] [address] Dx) [address] [place] [address] [phone] Social History Tobacco Use Types Packs/Day Years Used Date Never Assessed Sex Assigned at Date Recorded Not on file documented as of this encounter Plan of Treatment Scheduled Referrals Name Type Priority Associated Diagnoses Order S carmen [facility] Office Visit Referral Routine related Expect ed: 02/10/2021 condition, antepartum (Appro ximate), Expires: 02/03/2022 documented as of this encounter Visit Diagnoses Diagnosis related condition, antepartum - Primary documented in this encounter
--- OUTSIDE RECORDS SUMMARY | 2022-07-05 07:35 | XMS_ITS | Encounter Summary ---
:1990 Author Organization [place] Address [facility] [place] [address] Care Team Providers Name Role Phone Unavailable Primary Care Provider Unavailable Reason for Referral Diagnostic Imaging Ultrasound (Routine) - Closed Specialty Diagnoses / Procedures Referred By Contact Refer red To Contact Diagnoses related condition, antepartum History of placenta abruption Ur Maternal Med Procedures MFM US OB Complete 1st Tri Single [address] [place], [place] [address] Referral ID Status Reason Start Date Expiration Date Visits Requ ested Visits Authorized [id number] Closed 02/02/2021 02/02/2022 1 1 (Routine) - Closed Specialty Diagnoses / Procedures Referred By Contact Refer red To Contact Diagnoses related condition, antepartum History of placenta abruption Ur Maternal Med [address] [place], [place] [address] Referral ID Status Reason Start Date Expiration Date Visits Requ ested Visits Authorized [id number] Closed 02/02/2021 02/02/2022 1 1 Encounter Details Date Type Department Care Team Description 02/02/2021 Orders Only [facility] Tana Landers Pregnan cy related condition, antepartum (Primary Dx); Maternal Medicine RN Duran ory of placenta abruption [facility] [address] [place], [place] [address] Social History Tobacco Use Types Packs/Day Years Used Date Never Assessed Sex Assigned at Date Recorded Not on file documented as of this encounter Plan of Treatment Scheduled Referrals Name Type Priority Associated Diagnoses Order S carmen [facility] Genetic Counseling Referral Routine related Expected: 02/16/2021 condition, antep artum (Approximate), History of placenta Expires: 08/04/2021 abruption documented as of this encounter Results [facility] US OB Complete 1st Tri Single (02/12/2021 11:13 AM CDT) Anatomical Region Laterality Modality Ultrasound Specimen (Source) Anatomical Collection Method Collection Time Re ceived Time Location / / Volume Laterality 02/12/2021 10:34 AM CDT Impressions 02/12/2021 11:53 AM CDT IMPRESSION 1) There is a live jennings intrauterin e . 2) [place] rump length consistent with est ablished dates at 10w5d gestational age 3) heart rate normal for gestation al age. 4) Normal appearing yolk sac and gestati onal sac. Narrative 02/12/2021 11:53 AM CDT 1st Trim Pat. Name: VANESSA MARY Study Date: 02/12/2021 10:34am Pat. NO: [id number] Referring ??MD: KRISTA EDWARDS Site: [facility] Bilingual Customer Service: Christine Harris RD MS : 1990 Age: [...] anatomic ultrasound is scott nned in our [place] office at 18 weeks. Return to primary [...] Pat. Name:Jud MARY Date:03/2021 10:34am Pat. NO: [id number] MD:VONNIE SOTO [facility]Christine Harris RDMS :1990Age:30 INDICATION Poor Obstetric History, [...] anatomic ultrasound is scott nned in our [place] office at 18 weeks. Return to primary provider for continued care. If you have questions regarding today's evaluation or if we can be of further service, please contact the Maternal- Medicine Center. anomalies may be present but not detected IMPRESSION 1) There is a live jennings intrauterin e . 2) [place] rump length consistent with est ablished dates at 10w5d gestational age 3) heart rate normal for gestation al age. 4) Normal appearing yolk sac and gestati onal sac. Katie Pinto DO [facility] US ORDERABLES documented in this encounter Visit Diagnoses Diagnosis related condition, antepartum - Primary History of placenta abruption related condition, antepartum History of placenta abruption documented in this encounter
--- OUTSIDE RECORDS SUMMARY | 2022-07-05 07:35 | XMS_ITS | Clinical Summary ---
:1990 Author Organization [facility] Address [address] [place] [address] Care Team Providers Name Role Phone Unavailable Primary Care Provider Unavailable Source Comments Patient records contain information from all sites at [facility]. For routine questions regarding patient records, call [phone] during business hours, M-F 8:00 AM - 5:00 PM Central Time. Record requests for emergency care only can be directed to [phone] at any time.[facility] Social History Tobacco Use Types Packs/Day Years [...] Dates Phone Address Type / Group [facility] CARE [id number] 2021-Lucila [phone] [address] Medicaid HMO t 5 [place] [address]
--- OUTSIDE RECORDS SUMMARY | 2022-07-05 07:35 | XMS_ITS | Encounter Summary ---
:1990 Author Organization [place] Address [facility] [place] [address] Care Team Providers Name Role Phone Unavailable Primary Care Provider Unavailable Reason for Visit Reason Comments Genetic Counseling hx abruption @ 35 wks with c /s, Anti K antibody, depression/anxiety Ultrasound 1st tri Us-hx abruption @ 35 wks with c/s, Anti K antibody, depression/anxiety Consult MFM-hx abruption @ 35 wks [facility] c/s, Anti K antibody, depression/anxiety Encounter Details Date Type Department Care Team Description 02/06/2021 PRE VISIT [facility] Tana Landers, Genetic Counseling (hx Maternal Medicine RN abru ption @ 35 wks with [facility] c/s, Anti K antibody, [address] depression/anxiety); [place], [place] [address] Ultrasound (1st tri [phone] Us-hx abruption @ 35 wks with c/s, [...]
--- OUTSIDE RECORDS SUMMARY | 2022-07-05 07:35 | XMS_ITS | Encounter Summary ---
:1990 Author Organization [place] Address [address] [facility] 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 (Routine) - Closed Specialty Diagnoses / Procedures Referred By Contact Refer red To Contact Diagnoses Abnormal ultrasound Abnormal maternal serum screening test Mora Hi MD [address] [place], [place] [address] Referral ID Status Reason Start Date Expiration Date Visits Requ ested Visits Authorized [id number] Closed 04/07/2021 04/07/2022 1 1 Encounter Details Date Type Department Care Team Description 04/07/2021 Office Visit [facility] Dennys Hi MD [address] [place] [address] Abnormal ultrasound; Maternal Lori Barrera GC [address] [place], [place] [address] Abnormal maternal serum screening test [facility] [address] [facility] [address] [place] [address] Social History Tobacco Use Types [...] Barrera, GC - 04/07/2021 9:30 AM CDT [facility] Genetic Counseling Consult Patient: Vanessa Mary Date of : 1990 Date of Service: 04/07/21 Vanessa Mary was seen at the [facility] Maternal Medicine Center for genetic [...] had a blood draw for NIPT through [employer]. Results are expected within 5-7 days, and will be available in [email or web address] We will contact her to discuss the results, and a copy will be forwarded to the office of the referring OB provider. Vanessa provided verbal permission for detailed results ralph left on her voicemail. Charlene opted not to include screening for sex chromosome aneuploidies. The fetus is male by ultrasound. 4. Vanessa has a consultation with genetic counseling and one of the [facility] physicians earlier in her to discuss [...] syndrome risk= 1:149 ??? Trisomy 18 risk= 1:68271 ??? Open neural tube defects risk= 1:34979 We specifically discussed the analytes in her [...] was not (residual risk of 1 in [address]). 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 [id number] time of the meeting was 20 minutes. Lori Barrera MS, [facility] Licensed Genetic Counselor [facility] Maternal Medicine [phone] documented in this encounter Plan of Treatment Not on filedocumented as of this encounter Visit Diagnoses Diagnosis Abnormal ultrasound Abnormal findings on screening Abnormal maternal serum screening test Abnormal findings on screening documented in this encounter Care Teams Service Promoter Salesperson Relationship Specialty Start Date End Date Clinic, [facility] PCP - General 02/11/21 [place] [address] [place] [address] Mallory Srinivasan Assigned OBGYN Provider 02/22/21 04/11/21 documented as of this encounter
--- OUTSIDE RECORDS SUMMARY | 2022-07-05 07:35 | XMS_ITS | Encounter Summary ---
:1990 Author Organization [place] Address [address] [place] [address] Care Team Providers Name Role Phone Unavailable Primary Care Provider Unavailable Reason for Referral (Routine) - Closed Specialty Diagnoses / Procedures Referred By Contact Refer red To Contact Diagnoses related condition, antepartum Gina Lee [facility] [address] [place] [address] Referral ID Status Reason Start Date Expiration Date Visits Requ ested Visits Authorized [id number] Closed 01/30/2021 01/30/2022 1 1 Encounter Details Date Type Department Care Team Description 01/30/2021 Transcribe Orders [facility] Jesus Ap ril related Maternal [facility] condition, [facility] MEDICAL antepartum (Primary [place] [address] Dx) [address] [place], [place] [address] [address] [place], [place] [phone] [address] (Work) [phone] Social History Tobacco Use Types Packs/Day Years [...]
--- OUTSIDE RECORDS SUMMARY | 2022-07-05 07:35 | XMS_ITS | Encounter Summary ---
:1990 Author Organization [place] Address [address] [place] [address] Care Team Providers Name Role Phone [facility] Primary Care Provider [phone] Encounter Details Date Type Department Care Team [...] on filedocumented in this encounter Care Teams Inside Sales Person Relationship Specialty Start Date End Date [facility] PCP - General 02/11/21 [address] [place] [address] documented as of this encounter
--- OUTSIDE RECORDS SUMMARY | 2022-07-05 07:35 | XMS_ITS | Encounter Summary ---
:1990 Author Organization [place] Address On license of [facility] [place] [address] Care Team Providers Name Role Phone [facility], [facility] Primary Care Provider Mallory Srinivasan Unavailable Unavailable Encounter Details Date [...] on filedocumented in this encounter Care Teams Experimental Technician Relationship Specialty Start Date End Date [facility], [facility] PCP - General 02/11/21 [place] [address] [place] [address] Mallory Srinivasan Assigned OBGYN Provider 02/22/21 04/11/21 documented as of this encounter
--- OUTSIDE RECORDS SUMMARY | 2022-07-05 07:35 | XMS_ITS | Encounter Summary ---
:1990 Author Organization [place] Address [address] [place] [address] Care Team Providers Name Role Phone [facility], [facility] Primary Care Provider [phone] Mora Hi MD Unavailable Reason for Visit Reason Onset Date Comments Results 04/16/2021 low-risk NIPT Encounter Details Date Type Department Care Team Description 04/16/2021 Telephone [facility] Lori Barrera, Results (low-risk NIPT) Maternal Medicine [address] [address] [place] [phone] Social History Tobacco Use Types Packs/Day Years [...] amniocentesis. Her results are available in her [facility] chart for her primary OB to review. Lori Barrera, MS, [facility] Licensed Genetic Counselor [facility] Maternal Medicine [email or web address] [phone] documented in this encounter Plan of Treatment Not on filedocumented as of this encounter Visit Diagnoses Not on filedocumented in this encounter Care Teams Care Services Manager Relationship Specialty Start Date End Date Clinic, [facility] PCP - General 02/11/21 [place] [address] [place] [address] Mora Hi MD Assigned OBGYN Provider 04/12/21 08/29/[address] [place] [address] [address] [place] [address] documented as of this encounter
--- OUTSIDE RECORDS SUMMARY | 2022-07-05 07:35 | XMS_ITS | Encounter Summary ---
:1990 Author Organization [facility] Address [address] [place] [address] Care Team Providers Name Role Phone Unavailable Primary Care Provider Unavailable Reason for Visit Reason Comments SIMBA Nurse Line Encounter Details Date Type Department Care Team Description 12/19/2020 Clinical Communication Division of Mallory Wilson Nurse [facility] Internal Edward, [facility], [facility] in [place], [place] [address] [place] [address] Social History Tobacco Use Types Packs/Day Years Used Date Smoking Tobacco: Never Assessed Sex Assigned at Date Recorded Not on file documented as of this encounter Miscellaneous Notes Telephone Encounter - Mallory Wilson R.N. - 12/19/2020 12:13 PM CST COVID-19 Nurse Line Screening ASSESSMENT Region Select appropriate region: : [place] Age Pathway Select approprite pathway: : Adult [...] swabbed for COVID-19 Only , sent to [place] located at [address] [place] [address]. The entrance is on the north side of the building. You must call [phone] during the hours of 7am to 6 [...] water are not available, use a hand sand system operator -Avoid touching your eyes, nose and mouth. [...] care: Yes The following references were used: [facility] novel coronavirus (COVID- 19) resources Nursing judgement RANCE APPLICATION INVESTIGATOR documented in this encounter Plan of Treatment Not on filedocumented as of this encounter Visit Diagnoses Not on filedocumented in this encounter
--- OUTSIDE RECORDS SUMMARY | 2022-07-05 07:35 | XMS_ITS | Clinical Summary ---
:1990 Author Organization [facility] [place] [address] Care Team Providers Name Role Phone Britney Fenton MD Primary Care Provider [phone] Allergies No known active allergies Medications Medication [...] ss Type Group MEDICA MA MEDICA CHOICE [id number] 2016-Present [address] [address] [place] [address] Care Teams Indoor Landscaper/Gardener Relationship Specialty Start Date End Date Britney Fenton MD PCP - General Family Practice 06/06/13 [address] [place] [address]
--- OUTSIDE RECORDS SUMMARY | 2022-07-05 07:35 | XMS_ITS | Encounter Summary ---
:1990 Author Organization [facility] Address [address] [place] [address] Care Team Providers Name Role Phone [facility], [facility] Primary Care Provider [phone] Mallory Srinivasan Unavailable Unavailable Reason for Visit Reason Onset Date Comments Results 02/23/2021 carrier screening Encounter Details Date Type Department Care Team Description 02/23/2021 Telephone [facility] Lori Barrera, Results (carrier Maternal Medicine GC screening) [address] [address] [place] [phone] Social History Tobacco Use Types Packs/Day Years [...] one condition: Cystic fibrosis (CFTR: [id number] [aka [id number]]): ?? Cystic Fibrosis (CF) is an inherited [...] with any aneuploidy screening. Lori Barrera MS, [facility] Licensed Genetic Counselor [facility] Maternal Medicine [email or web address] [phone] documented in this encounter Plan of Treatment Not on filedocumented as of this encounter Visit Diagnoses Not on filedocumented in this encounter Care Teams Law Reporter Relationship Specialty Start Date End Date Clinic, [facility] PCP - General 02/11/21 [place] [address] [place] [address] Mallory Srinivasan Assigned OBGYN Provider 02/22/21 04/11/21 documented as of this encounter
--- OUTSIDE RECORDS SUMMARY | 2022-07-05 07:35 | XMS_ITS | Encounter Summary ---
:1990 Author Organization [facility] Address [address] [place] [address] Care Team Providers Name Role Phone Unavailable Primary Care Provider Unavailable Encounter Details Date Type Department Care Team Description 02/04/2021 Orders Only [facility] PCP TH Sa sujatha Mena M.D. [address] [place], [place] [phone] (Wo rk) Social History Tobacco Use Types Packs/Day Years Used Date Smoking Tobacco: Never Assessed Sex Assigned at Date Recorded Not on file documented as of this encounter Plan of Treatment Not on filedocumented as of this encounter Visit Diagnoses Not on filedocumented in this encounter
--- OUTSIDE RECORDS SUMMARY | 2022-07-05 07:35 | XMS_ITS | Encounter Summary ---
:1990 Author Organization [facility] Address [facility] [place] [address] Care Team Providers Name Role Phone Clinic, [facility] Primary Care Provider Reason for Visit Reason Comments Genetic Counseling encounter for scre ening/history of placental abruption (Routine) - Closed Specialty Diagnoses / Procedures Referred By Contact Refer red To Contact Diagnoses related condition, antepartum History of placenta abruption Ur Maternal Med [address] [place], [place] [address] Referral ID Status Reason Start Date Expiration Date Visits Requ ested Visits Authorized [id number] Closed 02/02/2021 02/02/2022 1 1 Encounter Details Date Type Department Care Team Description 02/12/2021 Office Visit [facility] Frannie Pinto DO [address] [address] Encounter for other genetic testing of f emale for procreative management (Primary Dx); Maternal Kelly Perdomo MD [address] [id number] related condition, antepartum; Medicine [place] Mallory Srinivasan History of placenta abruption [place] Lori Barrera GC [address] [facility] [address] [place], [place] [id number] [place], [place] [address] Social History Tobacco Use Types [...] Barrera, GC - 02/12/2021 9:30 AM CDT [facility] Genetic Counseling Consult Patient: Vanessa Mary Date of : 1990 Date of Service: 02/12/21 Vanessa Mary was seen at [facility] for genetic consultation to discuss her history of delivery due to placental abruption followed by demise, anti-Toddville antibodies, and to discuss routine aneuploidy screening. Vanessa was accompanied by her partner, Yusuf, to today's visit. Impression/Plan: 1. Vanessa had a genetic counseling consultation to discuss her history of delivery due to placental abruption followed by demise, anti- [place] antibodies, and to discuss routine aneuploidy screening. [...] partner, Yusuf, has already undergone genotyping for [place] and [place]ano. He was not found to have [place] antigen, so the fetus is not at risk for associated hemolytic disease of the fetus andnewborn. 4. Vanessa and Yusuf opted to pursue fundamental plus carrier screening, including fragile X, whichassesses carrier status for 14 conditions ([facility]oresight through [facility]). Results are expected within 2-3 weeks, and will be available in [place]. We will contact the couple to discuss [...] Vanessa also underwent a consultation with the [facility] physician to discuss her history of placental [...] is available. In addition, screening in [facility] includes cystic fibrosis. Expanded carrier screening for [...] fundamental plus carrier screening and sent to [facility]. We will contact her when these [...] a pleasure to be involved with Vanessa???s viki. Rpwy-fn-[id number] time of the meeting was 45 minutes. Lori Barrera MS, [facility] Licensed Genetic Counselor [facility] Maternal Medicine [email or web address] [phone] documented in this encounter Plan of Treatment Not on filedocumented as of this encounter Results [facility] Foresight Carrier Screen (02/12/2021 12:08 PM CDT) [facility] gist Method Time Signature Lab Scanned COUNSYL [...] abruption documented in this encounter Care Teams Field Marketing Manager Relationship Specialty Start Date End Date Clinic, [facility] PCP - General 02/11/21 [address] [place] [phone] documented as of this encounter
--- OUTSIDE RECORDS SUMMARY | 2022-07-05 07:35 | XMS_ITS | Encounter Summary ---
:1990 Author Organization [facility] Address [address] [place] [address] Care Team Providers Name Role Phone [facility], [facility] Primary Care Provider Reason for Referral Diagnostic Imaging Ultrasound (Routine) - Closed Specialty Diagnoses / Procedures Referred By Contact Refer red To Contact Diagnoses History of placenta abruption Mallory Srinivasan MFM US Comprehensive Single MFM US Comprehensive Single F/U [address] [place] [address] Referral ID Status Reason Start Date Expiration Date Visits Requ ested Visits Authorized [id number] Closed 02/12/2021 02/12/2022 1 1 Reason for Visit Reason Comments Ultrasound 1st tri U/S-h/o placental ab ruption 35 weeks Consult MFM-h/o placental abruption 35 weeks (Routine) - Closed Specialty Diagnoses / Procedures Referred By Contact Refer red To Contact Diagnoses related condition, antepartum [place] [address] [place] [address] Referral ID Status Reason Start Date Expiration Date Visits Requ ested Visits Authorized [id number] Closed 02/03/2021 02/03/2022 1 1 Encounter Details Date Type Department Care Team Description 02/12/2021 Office Visit [facility] Krista Edwards [facility] [address] [place] [address] History of placenta abruption (Primary D x); Maternal Conor, Kelly, MD [address] [place] [address] related condition, antepartum Medicine Center Tad Srinivasanah Israel Osborn [address] [place], [place] [address] Social History Tobacco Use Types [...] from the original note were not included. 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 - History of abnormal Pap smear: Yes: LSIL, HPV high risk positive 01/2021 Past Medical History: History of fulminant placental abruption with demise History of delivery Tobacco use disorder Short interpregnancy interval Past Surgical History: Primary delivery Social History: Lives with Yusuf. 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 Ultrasound: ??? Today's ultrasound at [facility] - see imaging tab Physical examination [...] these US to be done in the [place] office, which will be arranged for her. [...] for Vanessa. Anti-Gretchen antibody We briefly discussed anti-Earlham antibody. Discussed that following transfusion with Earlham-positive blood, individuals lacking a specific Earl[place] antigen may develop antibodies against Earlham antigens when transfused with blood containing that [...] erythropoiesis. As Yusuf is negative for the Earl[place] antigen, there is nothing further to do [...] clinically indicated - Referral to quit hotline (3-309-HBSHPDR), group therapy, or support provider. - Review [...] and discussed with Dr. Mallory Dumont MD, [facility] OBGYN PGY-2 02/12/2021 MFM Attending Attestation I personally examined and evaluated Vanessa Mary with Dr. Dumont and agree with Dr. Dumont's findings, assessment and plan of care as documented in the above note. I personally reviewed vital signs,ultrasound images and medications. See note for details; I have made the necessary edits/additions. Mallory Srinivasan MD Assistant Women'S Soccer Coach, CLIENT RELATIONS SPECIALIST Maternal- Medicine [email or web address] [phone] (Main MFM Office) [phone] or [phone] (for 24 hour MFM questions) [phone] (Pager) Time Spent on this Encounter I [...] and patient and her partner and the genetics nurse Date of service (when I saw the [...] on filedocumented as of this encounter Results [facility] US Comprehensive Single (04/07/2021 9:27 AM [...] MARY Study Date: 04/07/2021 8:42am Pat. NO: [id number] Referring ??: KRISTA EDWARDS Site: [facility] Mechanical Lead: Rose Myles RDMS : 1990 Age: 30 [...] 0 lb 9 ?oz EFW by ?Hadlock ([id number]) Head / Face / Neck Biometry: Kettle Cleaner ? 5.8 ? mm CM ?2.8 ? [...] cava. Inferior vena cava. 3-vessel view. ? 5-nuhcyd-ryculsu view. Cardiac position. Cardiac size. Cardiac rhythm. [...] RECOMMENDATION We discussed the findings on today's [facility] with the patient. We reviewed with the [...] of CSF within the choroid plexus. While FLAME CUTTING SUPERVISOR can be associated with a slight increase [...] patient contact, 7 minutes documenting in the il dical record. Please see note for details. Procedure Note Mora Hi MD - 04/07/2021Formatt ing of this note might be different from the original. Comprehensive PatTony Name:Jud MARY Date: 8:42am Pat. NO: [id number] MD:JANUARY ARACELI SOTO Site:[facility]ographer:Rose Myles RD MS :1990Age:30 INDICATION History of [...] 0 lb 9 oz EFW by Hadlock ([id number]) Head / Face / Neck Biometry: Kettle Cleaner 5.8 mm CM 2.8 mm Nasal bone [...] vena cava. Inferior vena cava. 3-vessel view. 3-hxkfoq-zhbbmui view. Cardiac position . Cardiac size. Cardiac [...] RECOMMENDATION We discussed the findings on today's [facility] with the patient. We reviewed with the [...] of CSF within the choroid plexus. While FLAME CUTTING SUPERVISOR can be associated with a slight increase [...] patient contact, 7 minutes documenting in the il dical record. Please see note for details. [...] fluid volume appeared no rmal. Mallory Srinivasan [facility] US ORDERABLES documented in this encounter Visit Diagnoses Diagnosis History of placenta abruption - Primary related condition, antepartum History of placenta abruption documented in this encounter Care Teams Hiv/Aids Care Nurse Relationship Specialty Start Date End Date Clinic, [facility] PCP - General 02/11/21 [address] [place] [address] documented as of this encounter
--- OUTSIDE RECORDS SUMMARY | 2022-07-05 07:35 | XMS_ITS | Encounter Summary ---
:1990 Author Organization [facility] Address [address] [place] [address] Care Team Providers Name Role Phone [facility], [facility] Primary Care Provider Mallory Srinivasan Unavailable Unavailable Reason for Referral (Routine) - Closed Specialty Diagnoses / Procedures Referred By Contact Refer red To Contact Diagnoses Abnormal ultrasound Abnormal maternal serum screening test Mora Hi MD [address] [place], [place] [address] Referral ID Status Reason Start Date Expiration Date Visits Requ ested Visits Authorized [id number] Closed 04/07/2021 04/07/2022 1 1 Reason for Visit Reason Comments Ultrasound L2-hx of abruption, anti deangelo l antibody Encounter Details Date Type Department Care Team Description 04/07/2021 Office Visit [facility] Mallory Srinivasan Howard spected chromosome anomaly of fetus affecting management of mother in jennings , antepartum (Primary Dx); Maternal Mora Hi MD [address] [place] [address] Abnormal ultrasound; Medicine Center Abnormal mat ernal serum screening test; [place] Suspected anomaly, ant epartum, single or unspecified fetus [address] [place] [address] Social History Tobacco Use Types [...] Name Type Priority Associated Diagnoses Order [facility] Genetic Counseling Referral Routine Abnormal Exp ected: 04/07/2021 ultrasound (Approximate), Abnormal maternal serum Expi res: 07/08/2021 screening test documented as of this encounter Results NIPT to [facility]: Laboratory Miscellaneous Order (04/07/2021 10:46 AM CDT) Component Value Ref Test Analysis Performed At [facility] Range Method Time Signature Miscellaneous Specimen Received, Reordered and sent to Performing laboratory - Report to follow upon 04/16/2021 [facility] Test completion. 8:13 AM CDT [facility] Specimen Anatomical Collection Method Collection Time Receive d Time (Source) Location / / Volume Laterality Blood 04/07/2021 10:46 04/07/2021 1:58 AM CDT PM CDT Narrative This result has an attachment that is no t available. 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
--- OUTSIDE RECORDS SUMMARY | 2022-07-05 07:35 | XMS_ITS | Encounter Summary ---
:1990 Author Organization [facility] Address [address] [place] [address]. [place] [address] Care Team Providers Name Role Phone Unavailable Primary Care Provider Unavailable Encounter Details Date Type Department Care Team Description 01/30/2021 [facility] Health Info [facility] Non-Provider [facility] Sr[facility] AND CLINICS [address] [place] [address] Social History Tobacco Use Types Packs/Day Years Used Date Never Assessed Sex Assigned at Date Recorded Not on file documented as of this encounter Plan of Treatment Not on filedocumented as of this encounter Visit Diagnoses Not on filedocumented in this encounter
--- OUTSIDE RECORDS SUMMARY | 2022-07-05 07:35 | XMS_ITS | Encounter Summary ---
:1990 Author Organization [facility] Address [address] [place] [address] Care Team Providers Name Role Phone [facility], [facility] Primary Care Provider [phone] Reason for Referral Diagnostic Imaging Ultrasound (Routine) - Closed Specialty Diagnoses / Procedures Referred By Contact Refer red To Contact Diagnoses related condition, antepartum History of placenta abruption Ur Maternal Med Procedures [facility] US OB Complete 1st Tri Single [address] [facility] [address] [place], [place] [address] Referral ID Status Reason Start Date Expiration Date Visits Requ ested Visits Authorized [id number] Closed 02/02/2021 02/02/2022 1 1 Reason for Visit Diagnostic Imaging Ultrasound (Routine) - Closed Specialty Diagnoses / Procedures Referred By Contact Refer red To Contact Diagnoses related condition, antepartum History of placenta abruption Ur Maternal Med Procedures [facility] US OB Complete 1st Tri Single [address] [place], [place] [address] Referral ID Status Reason Start Date Expiration Date Visits Requ ested Visits Authorized [id number] Closed 02/02/2021 02/02/2022 1 1 Encounter Details Date Type Department Care Team Description 02/12/2021 Hospital Encounter [facility] Kandy Falk DO [address] [facility] [address] [place], [place] [address] related condition, antepartum; Maternal Conor, Kelly, MD [address] [place] [address] History of placenta abruption Medicine [place] Mallory Srinivasan [place] [address] [place] [address] Social History Tobacco Use Types [...] Name Priority Date/Time Associated Diagnosis Comme nts [facility] US OB COMPLETE Routine 02/12/2021 11:13 AM relat ed Results for this 1ST TRI SINGLE CDT condition, procedure are in antepartum the results History of placenta section. abruption documented in this encounter Results [facility] US OB Complete 1st Tri Single (02/12/2021 11:13 AM CDT) Anatomical Region Laterality Modality Ultrasound Specimen (Source) Anatomical Collection Method Collection Time Re ceived Time Location / / Volume Laterality 02/12/2021 10:34 AM CDT Impressions 02/12/2021 11:53 AM CDT IMPRESSION 1) There is a live jennings intrauterin e . 2) [place] rump length consistent with est ablished dates at 10w5d gestational age 3) heart rate normal for gestation al age. 4) Normal appearing yolk sac and gestati onal sac. Narrative 02/12/2021 11:53 AM CDT 1st Trim Pat. Name: VANESSA MARY Study Date: 02/12/2021 10:34am Pat. NO: [id number] Referring ??MD: KRISTA EDWARDS Site: [facility] City Editor: Christine Harris RD MS : 1990 Age: [...] anatomic ultrasound is scott nned in our [place] office at 18 weeks. Return to primary provider for continued care. If you have questions regarding today's evaluation or if we can be of further service, please contact the Maternal- Medicine Center. anomalies may be present but not detected Procedure Note Malloyr Srinivasan MD - 02/12/2021For matting of this note might be different from the original. 1st Trim Pat. Name:Jud MARY Date:03/2021 10:34am Pat. NO: [id number] MD:January [facility]her:Christine Harris RDMS :1990Age:30 INDICATION Poor Obstetric History, [...] anatomic ultrasound is scott nned in our [place] office at 18 weeks. Return to primary provider for continued care. If you have questions regarding today's evaluation or if we can be of further service, please contact the Maternal- Medicine Center. anomalies may be present but not detected IMPRESSION 1) There is a live jennings intrauterin e . 2) [place] rump length consistent with est ablished dates at 10w5d gestational age 3) heart rate normal for gestation al age. 4) Normal appearing yolk sac and gestati onal sac. Katie Pinto DO [facility] US ORDERABLES documented in this encounter Visit Diagnoses Diagnosis related condition, antepartum History of placenta abruption documented in this encounter Care Teams Transmitter Supervisor Relationship Specialty Start Date End Date Clinic, [facility] PCP - General 02/11/21 [address] [place] [address] documented as of this encounter
--- OUTSIDE RECORDS SUMMARY | 2022-07-05 07:35 | XMS_ITS | Encounter Summary ---
:1990 Author Organization [place] Address [facility] access [facility]0 [place] [address] Care Team Providers Name Role Phone [facility], [facility] Primary Care Provider [phone] Mallory Srinivasan Unavailable Unavailable Encounter Details Date Type Department Care Team Description 04/07/2021 Hospital Encounter [facility] Mallory Srinivasan old Abnormal ultrasound; [facility] Mora Hi MD [address] [address] [place], [place] [address] Abnormal maternal serum screening test [address] [place] [address] Social History Tobacco Use Types [...] Component Value Ref Test Analysis Performed At [facility] gist Range Method Time Signature Miscellaneous Specimen Received, Reordered and sent to Performing laboratory - Report to follow upon 04/16/2021 [facility] Test completion. 8:13 AM CDT [facility] Specimen Anatomical Collection Method Collection Time Receive d Time (Source) Location / / Volume Laterality Blood 04/07/2021 10:46 04/07/2021 1:58 AM CDT PM CDT Narrative This result has an attachment that is no t available. Mora Hi MD LAB - BLOOD ORDERABLES Performing Organization Address City/State/ZIP Code Phon e Number [facility] [address] [place], [place] [id number] [place] [address] documented in this encounter Visit Diagnoses Diagnosis Abnormal ultrasound Abnormal findings on screening Abnormal maternal serum screening test Abnormal findings on screening documented in this encounter Care Teams Qc Lab Technician Relationship Specialty Start Date End Date [facility] PCP - General 02/11/21 [place] [address] [place] [phone] Mallory Srinivasan Assigned OBGYN Provider 02/22/21 04/11/21 documented as of this encounter
--- OUTSIDE RECORDS SUMMARY | 2022-07-05 07:35 | XMS_ITS | Encounter Summary ---
:1990 Author Organization [facility] Address [address] [place] [address] Care Team Providers Name Role Phone Unavailable Primary Care Provider Unavailable Reason for Visit Reason Onset Date Comments Outpatient COVID-19 Testing 12/19/2020 Encounter Details Date Type Department Care Team Description 12/19/2020 External Outreach Department of [facility] Danielito Mae Contact With And Medicine, [facility] Kiarra Leon (Suspected) Exposure Building, in [address] To COVID-19 ([place], [place] Dx) [address] [facility] [address] [place], [place] [phone] [address] (Work) [phone] Social History Tobacco Use Types Packs/Day Years Used Date Smoking Tobacco: Never Assessed Sex Assigned at Date Recorded Not on file documented as of this encounter Progress Notes Harshil Oreilly R.N. - 12/19/2020 1:01 PM CST Encounter created for COVID-19 screening. LAYER HELPER documented in this encounter Plan of Treatment Not on filedocumented as of this encounter Procedures Procedure Name Priority Date/Time Associated Diagnosis Comme nts SARS CORONAVIRUS-2 Routine 12/19/2020 2:51 PM Contact With And Results for this RNA, V DUCT LAYER HELPER (Suspected) Exposure procedu re are in To COVID-19 the results section. documented in this encounter Results SARS Coronavirus-2 RNA, V Asymptomatic (12/19/2020 2:51 PM DUCT LAYER HELPER) [facility] Method Time Signature SARS-CoV-2 Swab, 12/20/2020 [facility] Specimen Nasopharynx 12:45 AM Source DUCT LAYER HELPER SARS CoV-2 Undetected Undetected 12/20/2020 [facility] RNA, TMA 12:45 AM DUCT LAYER HELPER Comment: SARS-CoV-2 RNA absent. This result does not rule out COVID-19 in the patient, as the sensitivity of the test depends o n the timing of the specimen collection and the quality of the specim en. Result should be correlated with patient's history and clinical presentat ion. ----ADDITIONAL INFORMATION---- This molecular amplification test was pe rformed using the Aptima SARS-CoV-2 assay ([employer] on the BLUEPHOENIXs tem under emergency use authorization (EUA) by the U.S. Food and Drug Administ ration. Fact sheets for this EUA assay can be fo und at the following links: For Healthcare Providers: https://www.fd a.gov/media/552277/download For Patients: https://www.fda.gov/media/ 256388/download Specimen Anatomical Collection Method Collection Time Receive d Time (Source) Location / / Volume Laterality Varies 12/19/2020 2:51 PM 7:26 (Nasopharynx) DUCT LAYER HELPER PM DUCT LAYER HELPER Danielito Mae D.O. LAB MICROBIOLOGY - GENERAL O RDERABLES Performing Organization Address City/State/ZIP Code Phon e Number [facility] [address] [place] [phone] [place] [address] [place] [address] [address] documented in this encounter Visit Diagnoses Diagnosis Contact With And (Suspected) Exposure To COVID-19 - Primary documented in this encounter Additional Health Concerns Infection Onset Date Last Indicated Resolved Time COVID19 Pending 12/19/2020 12/19/2020 12/20/2020 12:47 AM DUCT LAYER HELPER documented as of this encounter
--- OUTSIDE RECORDS SUMMARY | 2022-07-05 07:35 | XMS_ITS | Encounter Summary ---
:1990 Author Organization [facility] Address [address] [place] [address] Care Team Providers Name Role Phone Unavailable Primary Care Provider Unavailable Encounter Details Date Type Department Care Team Description 12/19/2020 Admin Visit Department of Family Medicine, [address] [address] [facility] [phone] Social History Tobacco Use Types Packs/Day Years Used Date Smoking Tobacco: Never Assessed Sex Assigned at Date Recorded Not on file documented as of this encounter Plan of Treatment Not on filedocumented as of this encounter Visit Diagnoses Not on filedocumented in this encounter Additional Health Concerns Infection Onset Date Last Indicated Resolved Time COVID19 Pending 12/19/2020 12/19/2020 12/20/2020 12:47 AM 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
--- OUTSIDE RECORDS SUMMARY | 2022-07-05 07:35 | XMS_ITS | Encounter Summary ---
:1990 Author Organization [place] Address [address] [place] [address] Care Team Providers Name Role Phone Clinic, [facility] Primary Care Provider [phone] Encounter Details Date Type Department Care Team Description 02/12/2021 Orders Only [facility] Frannie Pinto DO [address] [place] [address] related condition, antepartum; [facility] Kelly Perdomo MD [address] [place] [address] History of placenta abruption; Mallory Doty Encounter for other genetic testing of f emale for procreative management [address] [place] [address] Social History Tobacco Use Types Packs/Day [...] Foresight Carrier Screen (02/12/2021 12:08 PM CDT) [facility] gist Method Time Signature Lab Scanned [...] management documented in this encounter Care Teams Profiling Machine Set Up Operator Relationship Specialty Start Date End Date Clinic, [facility] PCP - General 02/11/[address] [place] [phone] documented as of this encounter
--- OUTSIDE RECORDS SUMMARY | 2022-07-05 07:35 | XMS_ITS | Encounter Summary ---
:1990 Author Organization [place] Address [address] [place] [address] Care Team Providers Name Role Phone Clinic, [facility] Primary Care Provider [phone] Mallory Srinivasan Unavailable Unavailable Reason for Referral Diagnostic Imaging Ultrasound (Routine) - Closed Specialty Diagnoses / Procedures Referred By Contact Refer red To Contact Diagnoses History of placenta abruption Mallory Srinivasan Procedures [facility] Comprehensive Single [facility] Comprehensive Single F/U [address] [place] [address] Referral ID Status Reason Start Date Expiration Date Visits Requ ested Visits Authorized [id number] Closed 02/12/2021 02/12/2022 1 1 Reason for Visit Diagnostic Imaging Ultrasound (Routine) - Closed Specialty Diagnoses / Procedures Referred By Contact Refer red To Contact Diagnoses History of placenta abruption Mallory Srinivasan Procedures [facility] US Comprehensive Single [facility] Comprehensive Single F/U [address] [place] [address] Referral ID Status Reason Start Date Expiration Date Visits Requ ested Visits Authorized [id number] Closed 02/12/2021 02/12/2022 1 1 Encounter Details Date Type Department Care Team Description 04/07/2021 [facility] History of placenta Maternal Mora Hi MD [address] [place], [place] [address] [facility] [place] [address] [facility] [address] [place] [address] Social History Tobacco Use Types [...] Procedure Name Priority Date/Time Associated Comments Diagnosis [facility] COMPREHENSIVE Routine 04/07/2021 9:27 AM [facility] Results for this SINGLE CDT abruption procedure are i n the results section. documented in this encounter Results [facility] US Comprehensive Single (04/07/2021 9:27 AM CDT) [...] MARY Study Date: 04/07/2021 8:42am Pat. NO: [id number] Referring ??MD: RKISTA EDWARDS Site: [facility] Audit Intern: Rose Myles RDMS : 1990 Age: 30 [...] 0 lb 9 ?oz EFW by ?Hadlock ([id number]-FL) Head / Face / Neck Biometry: Circuit Court Clerk ? 5.8 ? mm CM ?2.8 ? [...] cava. Inferior vena cava. 3-vessel view. ? 5-dcmfze-euufnlo view. Cardiac position. Cardiac size. Cardiac rhythm. [...] of CSF within the choroid plexus. While PARACHUTE FOLDER can be associated with a slight increase [...] patient contact, 7 minutes documenting in the md dical record. Please see note for details. Procedure Note Mora Hi MD - 04/07/2021Formatt ing of this note might be different from the original. Comprehensive Sravani. Name:Jud MARY Date: 8:42am Pat. NO: [id number] MD:JANUARY [facility]:Rose Myles RD MS :1990Age:30 INDICATION History of [...] 0 lb 9 oz EFW by Hadlock ([id number]-RH-DT-FL) Head / Face / Neck Biometry: Circuit Court Clerk 5.8 mm CM 2.8 mm Nasal bone [...] vena cava. Inferior vena cava. 3-vessel view. 0-ytvmlq-lnoadpo view. Cardiac position . Cardiac size. Cardiac [...] of CSF within the choroid plexus. While PARACHUTE FOLDER can be associated with a slight increase [...] patient contact, 7 minutes documenting in the md dical record. Please see note for details. [...] fluid volume appeared no rmal. Mallory [facility]rinivasan [facility] documented in this encounter Visit Diagnoses Diagnosis History of placenta abruption documented in this encounter Care Teams Fisher Trawl Net Relationship Specialty Start Date End Date [facility]21 [place] [address] [place] [address] Mallory Srinivasan Assigned OBGYN Provider 02/22/21 04/11/21 documented as of this encounter
--- OUTSIDE RECORDS SUMMARY | 2022-07-05 07:35 | XMS_ITS | Clinical Summary ---
:1990 Author Organization [place] Address [address] [place] [address]. [place] [address] Care Team Providers Name Role Phone [facility] Primary Care Provider Social History Tobacco Use [...] comple te this topic Years) Care Teams Top Hat Body Maker Relationship Specialty Start Date End Date [facility] PCP - General 02/11/21 [address] [place] [phone]
== END 2022-07-01 18:49 | disposition home or self-care (01) ==
PROVIDERS: Emergency Provider Family Medicine; PCP Obstetrics & Gynecology
DX: K62.5 Hemorrhage of anus and rectum (principal)
CPT/HCPCS: 36415; 80053; 84703; 85025; 86850; 86870; 86880; 86900; 86901; 94761; 99283; 99284; J7030

== ENCOUNTER 2022-07-09 09:07 | Outpatient (CLI) | payer MEDICAID, SELFPAY ==
--- OUTSIDE RECORDS SUMMARY | 2022-07-09 09:12 | XMS_ITS | Encounter Summary ---
:1990 Author Organization [place] Address [facility] [place] [address] Care Team Providers Name Role Phone Clinic, [facility] Primary Care Provider Reason for Visit Reason Comments Genetic Counseling encounter for scre ening/history of placental abruption (Routine) - Closed Specialty Diagnoses / Procedures Referred By Contact Refer red To Contact Diagnoses related condition, antepartum History of placenta abruption [facility] [address] [place], [place] [address] Referral ID Status Reason Start Date Expiration Date Visits Requ ested Visits Authorized [id number] Closed 02/02/2021 02/02/2022 1 1 Encounter Details Date Type Department Care Team Description 02/12/2021 Office Visit [facility] Frannie Pinto DO [address] [address] Encounter for other genetic testing of f emale for procreative management (Primary Dx); Maternal Kelly Perdomo MD [address] [address] related condition, antepartum; [facility] [place] Mallory Srinivasan History of placenta abruption [place] Lori Barrera GC [address] [facility] [address] [place], [place] [address] [address] [place], [place] [address] Social History Tobacco Use Types [...] Barrera, GC - 02/12/2021 9:30 AM CDT [facility] Genetic Counseling Consult Patient: Vanessa Mary Date of : 1990 Date of Service: 02/12/21 Vanessa Mary was seen at [facility] for genetic consultation to discuss her history of delivery due to placental abruption followed by demise, anti-Hutchinson antibodies, and to discuss routine aneuploidy screening. Vanessa was accompanied by her partner, Yusuf, to today's visit. Impression/Plan: 1. Vanessa had a genetic counseling consultation to discuss her history of delivery due to placental abruption followed by demise, anti- Hutchinson antibodies, and to discuss routine aneuploidy screening. [...] partner, Yusuf, has already undergone genotyping for Hutchinson and Cellano. He was not found to have Hutchinson antigen, so the fetus is not at risk for associated hemolytic disease of the fetus andnewborn. 4. Vanessa and Yusuf opted to pursue fundamental plus carrier screening, including fragile X, whichassesses carrier status for 14 conditions (Foresight through [facility] lab). Results are expected within 2-3 weeks, and will be available in [employer]. We will contact the couple to discuss [...] Vanessa also underwent a consultation with the [facility] physician to discuss her history of placental [...] is available. In addition, screening in the [facility] includes cystic fibrosis. Expanded carrier screening [...] fundamental plus carrier screening and sent to [employer] [employer] laboratory. We will contact her when these [...] pleasure to be involved with Vanessa???s viki. Meyy-xw-iltl time of the meeting was 45 minutes. Lori Barrera MS, [facility] Licensed Genetic Counselor [facility] Maternal [facility] [email or web address] [phone] documented in this encounter Plan of Treatment Not on filedocumented as of this encounter Results [facility] Foresight Carrier Screen (02/12/2021 12:08 PM CDT) [facility] gist Method Time Signature Lab Scanned [...] abruption documented in this encounter Care Teams Access Specialist Relationship Specialty Start Date End Date Clinic, [facility] PCP - General 02/11/21 [address] [place] [address] documented as of this encounter
--- OUTSIDE RECORDS SUMMARY | 2022-07-09 09:12 | XMS_ITS | Encounter Summary ---
:1990 Author Organization [place] Address [address] [place] [address] Care Team Providers Name Role Phone Clinic, [facility] Primary Care Provider [phone] Mallory Srinivasan Unavailable Unavailable Reason for Referral Diagnostic Imaging Ultrasound (Routine) - Closed Specialty Diagnoses / Procedures Referred By Contact Refer red To Contact Diagnoses History of placenta abruption Mallory Srinivasan Procedures [facility] US Comprehensive Single [facility] US Comprehensive Single F/U [address] [place] [address] Referral ID Status Reason Start Date Expiration Date Visits Requ ested Visits Authorized [id number] Closed 02/12/2021 02/12/2022 1 1 Reason for Visit Diagnostic Imaging Ultrasound (Routine) - Closed Specialty Diagnoses / Procedures Referred By Contact Refer red To Contact Diagnoses History of placenta abruption Mallory Srinivasan Procedures [facility] US Comprehensive Single [facility] US Comprehensive Single F/U [address] [place] [address] Referral ID Status Reason Start Date Expiration Date Visits Requ ested Visits Authorized [id number] Closed 02/12/2021 02/12/2022 1 1 Encounter Details Date Type Department Care Team Description 04/07[facility]2021 [facility] History of placenta Maternal Mora Hi MD [address] [place], [place] [address] [facility] [place] [address] [facility] [address] [place] [address] Social History Tobacco Use Types [...] Procedure Name Priority Date/Time Associated Comments Diagnosis [facility] US COMPREHENSIVE Routine 04/07/2021 9:27 AM [facility] Results for this SINGLE CDT abruption procedure are i n the results section. documented in this encounter Results [facility] US Comprehensive Single (04/07/2021 9:27 AM CDT) [...] MARY Study Date: 04/07/2021 8:42am Pat. NO: [id number] Referring ??MD: KRISTA EDWARDS Site: [facility] Overnight Associate: Rose Myles RDMS : 1990 Age: 30 [...] 0 lb 9 ?oz EFW by ?Hadlock (RSQ-HC-BI-FL) Head / Face / Neck Biometry: Nailhead Operator ? 5.8 ? mm CM ?2.8 ? [...] cava. Inferior vena cava. 3-vessel view. ? 4-niycni-lqbahim view. Cardiac position. Cardiac size. Cardiac rhythm. [...] of CSF within the choroid plexus. While ACCOUNTANT HELPER can be associated with a slight increase [...] Sravani. Name:Jud MARY Date: 8:42am Pat. NO: [id number] MD:JANUARY [facility]:Rose Myles RD MS :1990Age:30 INDICATION History [...] 0 lb 9 oz EFW by Hadlock ([id number]-FL) Head / Face / Neck Biometry: Nailhead Operator 5.8 mm CM 2.8 mm Nasal bone [...] vena cava. Inferior vena cava. 3-vessel view. 3-tvegky-vryuiyd view. Cardiac position . Cardiac size. Cardiac [...] of CSF within the choroid plexus. While ACCOUNTANT HELPER can be associated with a slight increase [...] fluid volume appeared no rmal. Mallory Srinivasan [facility] ORDERABLES documented in this encounter Visit Diagnoses Diagnosis History of placenta abruption documented in this encounter Care Teams Electronics Production Supervisor Relationship Specialty Start Date End [facility] - [facility]21 [place] [address] [place] [address] Mallory Srinivasan Assigned OBGYN Provider 02/22/21 04/11/21 documented as of this encounter
--- OUTSIDE RECORDS SUMMARY | 2022-07-09 09:12 | XMS_ITS | Encounter Summary ---
:1990 Author Organization [place] Address [address] [place] [address] Care Team Providers Name Role Phone Clinic, [facility] Primary Care Provider [phone] Encounter Details Date Type Department Care Team Description 02/12/2021 Orders Only [facility] Frannie Pinto DO [address] [place] [address] related condition, antepartum; [facility] Kelly Perdomo MD [address] [place] [address] History of placenta abruption; Mallory Doty Encounter for other genetic testing of f emale for procreative management [address] [place] [address] Social History Tobacco Use Types Packs/Day [...] Foresight Carrier Screen (02/12/2021 12:08 PM CDT) [facility] gist Method Time Signature Lab Scanned [...] management documented in this encounter Care Teams Patent Engineer Relationship Specialty Start Date End Date Clinic, [facility] PCP - General 02/11/[address] [place] [phone] documented as of this encounter
--- OUTSIDE RECORDS SUMMARY | 2022-07-09 09:12 | XMS_ITS | Clinical Summary ---
:1990 Author Organization [facility] [place] [address] Care Team Providers Name Role Phone Britney Fenton MD Primary Care Provider [phone] Allergies No known active allergies Medications Medication [...] ss Type Group MEDICA [place] MED[employer] CHOICE [id number] 2016-Present [address] [address] [place] [address] Care Teams Cosmetics Machine Operator Relationship Specialty Start Date End Date Britney Fenton MD PCP - General Family Practice 06/06/13 [address] [place] [address]
--- OUTSIDE RECORDS SUMMARY | 2022-07-09 09:12 | XMS_ITS | Encounter Summary ---
:1990 Author Organization [place] Address [address] [place] [address] Care Team Providers Name Role Phone [facility], [facility] Primary Care Provider Reason for Referral Diagnostic Imaging Ultrasound (Routine) - Closed Specialty Diagnoses / Procedures Referred By Contact Refer red To Contact Diagnoses History of placenta abruption Mallory Srinivasan MFM US Comprehensive Single MFM US Comprehensive Single F/U [address] [place] [address] Referral ID Status Reason Start Date Expiration Date Visits Requ ested Visits Authorized [id number] Closed 02/12/2021 02/12/2022 1 1 Reason for Visit Reason Comments Ultrasound 1st tri U/S-h/o placental ab ruption 35 weeks Consult MFM-h/o placental abruption 35 weeks (Routine) - Closed Specialty Diagnoses / Procedures Referred By Contact Refer red To Contact Diagnoses related condition, antepartum [place] [address] [place] [address] Referral ID Status Reason Start Date Expiration Date Visits Requ ested Visits Authorized [id number] Closed 02/03/2021 02/03/2022 1 1 Encounter Details Date Type Department Care Team Description 02/12/2021 Office Visit [facility] Krista Edwards [facility] [address] [place] [address] History of placenta abruption (Primary D x); Maternal Conor, Kelly, MD [address] [place] [address] related condition, antepartum Medicine Center Tad Srinivasanah Israel Eugene [address] [place], [place] [address] Social History Tobacco Use Types [...] from the original note were not included. 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 - History of abnormal Pap smear: Yes: LSIL, HPV high risk positive 01/2021 Past Medical History: History of fulminant placental abruption with demise History of delivery Tobacco use disorder Short interpregnancy interval Past Surgical History: Primary delivery Social History: Lives with Yusuf. 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 Ultrasound: ??? Today's ultrasound at [facility] - see imaging tab Physical examination [...] these US to be done in the [place] office, which will be arranged for her. [...] for Vanessa. Anti-Gretchen antibody We briefly discussed anti-[place] antibody. Discussed that following transfusion with [place]-positive blood, individuals lacking a specific [place] antigen may develop antibodies against [place] antigens when transfused with blood containing that [...] erythropoiesis. As Yusuf is negative for the [place] antigen, there is nothing further to do [...] clinically indicated - Referral to quit hotline (1-756-JKJNNQY), group therapy, or support provider. - Review [...] and discussed with Dr. Mallory [place] MD, [facility] OBGYN PGY-2 02/12/2021 MFM Attending Attestation I personally examined and evaluated Vanessa Mary with Dr. [place] and agree with Dr. [place]'s findings, assessment and plan of care as documented in the above note. I personally reviewed vital signs,ultrasound images and medications. See note for details; I have made the necessary edits/additions. Mallory Srinivasan MD Leasing Manager, ENGINEER OF SYSTEM DEVELOPMENT Maternal- Medicine [email or web address] [phone] (Main MFM Office) [phone] or [phone] (for 24 hour MFM questions) [phone] (Pager) Time Spent on this Encounter I [...] and patient and her partner and the operator vacuum Date of service (when I saw the [...] on filedocumented as of this encounter Results [facility] US Comprehensive Single (04/07/2021 9:27 AM [...] MARY Study Date: 04/07/2021 8:42am Pat. NO: [id number] Referring ??: KRISTA EDWARDS Site: [facility] Racing Car Driver: Rose Myles RDMS : 1990 Age: 30 [...] 0 lb 9 ?oz EFW by ?Hadlock ([id number]) Head / Face / Neck Biometry: Dope Worker ? 5.8 ? mm CM ?2.8 ? [...] cava. Inferior vena cava. 3-vessel view. ? 5-vsoosd-hfynbom view. Cardiac position. Cardiac size. Cardiac rhythm. [...] RECOMMENDATION We discussed the findings on today's [facility] with the patient. We reviewed with [...] of CSF within the choroid plexus. While CEMENTING BULK MATERIAL OPERATOR can be associated with a slight increase [...] patient contact, 7 minutes documenting in the ak dical record. Please see note for details. Procedure Note Mora Hi MD - 04/07/2021Formatt ing of this note might be different from the original. Comprehensive PatTony Name:Jud MARY Date: 8:42am Pat. NO: [id number] MD:JANUARY ARACELI SOTO Site:RidgesSonographer:Rose Myles RD MS [...] 0 lb 9 oz EFW by Hadlock ([id number]) Head / Face / Neck Biometry: Dope Worker 5.8 mm CM 2.8 mm Nasal bone [...] vena cava. Inferior vena cava. 3-vessel view. 8-wtypry-fkpfndg view. Cardiac position . Cardiac size. Cardiac [...] RECOMMENDATION We discussed the findings on today's [facility] with the patient. We reviewed with [...] of CSF within the choroid plexus. While CEMENTING BULK MATERIAL OPERATOR can be associated with a slight increase [...] patient contact, 7 minutes documenting in the ak dical record. Please see note for details. [...] fluid volume appeared no rmal. Mallory Srinivasan [facility] US ORDERABLES documented in this encounter Visit Diagnoses Diagnosis History of placenta abruption - Primary related condition, antepartum History of placenta abruption documented in this encounter Care Teams Financial Accounting Analyst Relationship Specialty Start Date End Date Clinic, [facility] PCP - General 02/11/21 [address] [place] [address] documented as of this encounter
--- OUTSIDE RECORDS SUMMARY | 2022-07-09 09:12 | XMS_ITS | Encounter Summary ---
:1990 Author Organization [place] Address [facility] [place] [address] Care Team Providers Name Role Phone Unavailable Primary Care Provider Unavailable Reason for Visit Reason Comments Genetic Counseling hx abruption @ 35 wks with c /s, Anti K antibody, depression/anxiety Ultrasound 1st tri Us-hx abruption @ 35 wks with c/s, Anti K antibody, depression/anxiety Consult MFM-hx abruption @ 35 wks [facility] c/s, Anti K antibody, depression/anxiety Encounter Details Date Type Department Care Team Description 02/06/2021 PRE VISIT [facility] Tana Landers, Genetic Counseling (hx Maternal Medicine RN abru ption @ 35 wks with [facility] c/s, Anti K antibody, [address] depression/anxiety); [place], [place] [address] Ultrasound (1st tri [phone] Us-hx abruption @ 35 wks with c/s, [...]
--- OUTSIDE RECORDS SUMMARY | 2022-07-09 09:12 | XMS_ITS | Encounter Summary ---
:1990 Author Organization [place] Address [facility] [place] [address] Care Team Providers Name Role Phone [facility], [facility] Primary Care Provider Mallory Srinivasan [...] on filedocumented in this encounter Care Teams Stagecraft Teacher Relationship Specialty Start Date End Date [facility], [facility] PCP - General 02/11/21 [place] [address] [place] [address] Mallory Srinivasan Assigned OBGYN Provider 02/22/21 04/11/21 documented as of this encounter
--- OUTSIDE RECORDS SUMMARY | 2022-07-09 09:12 | XMS_ITS | Clinical Summary ---
:1990 Author Organization [place] Address [address] [place] [address]. [place] [address] Care Team Providers Name Role Phone [facility] Primary Care Provider Social History Tobacco [...] comple te this topic Years) Care Teams Information Scientist Relationship Specialty Start Date End Date [facility], [facility] PCP - General 02/11/21 [address] [place] [phone]
--- OUTSIDE RECORDS SUMMARY | 2022-07-09 09:12 | XMS_ITS | Encounter Summary ---
:1990 Author Organization [place] Address [facility] [place] [address] Care Team Providers Name Role Phone Unavailable Primary Care Provider Unavailable Reason for Referral Diagnostic Imaging Ultrasound (Routine) - Closed Specialty Diagnoses / Procedures Referred By Contact Refer red To Contact Diagnoses related condition, antepartum History of placenta abruption Ur Maternal Med Procedures MFM US OB Complete 1st Tri Single [address] [place], [place] [address] Referral ID Status Reason Start Date Expiration Date Visits Requ ested Visits Authorized [id number] Closed 02/02/2021 02/02/2022 1 1 (Routine) - Closed Specialty Diagnoses / Procedures Referred By Contact Refer red To Contact Diagnoses related condition, antepartum History of placenta abruption Ur Maternal Med [address] [place], [place] [address] Referral ID Status Reason Start Date Expiration Date Visits Requ ested Visits Authorized [id number] Closed 02/02/2021 02/02/2022 1 1 Encounter Details Date Type Department Care Team Description 02/02/2021 Orders Only [facility] Tana Landers Pregnan cy related condition, antepartum (Primary Dx); Maternal Medicine RN Duran ory of placenta abruption [facility] [address] [place], [place] [address] Social History Tobacco Use Types Packs/Day Years Used Date Never Assessed Sex Assigned at Date Recorded Not on file documented as of this encounter Plan of Treatment Scheduled Referrals Name Type Priority Associated Diagnoses Order S carmen [facility] Genetic Counseling Referral Routine related Expected: 02/16/2021 condition, antep artum (Approximate), History of placenta Expires: 08/04/2021 abruption documented as of this encounter Results [facility] US OB Complete 1st Tri Single (02/12/2021 11:13 AM CDT) Anatomical Region Laterality Modality Ultrasound Specimen (Source) Anatomical Collection Method Collection Time Re ceived Time Location / / Volume Laterality 02/12/2021 10:34 AM CDT Impressions 02/12/2021 11:53 AM CDT IMPRESSION 1) There is a live jennings intrauterin e . 2) [place] rump length consistent with est ablished dates at 10w5d gestational age 3) heart rate normal for gestation al age. 4) Normal appearing yolk sac and gestati onal sac. Narrative 02/12/2021 11:53 AM CDT 1st Trim Pat. Name: VANESSA MARY Study Date: 02/12/2021 10:34am Pat. NO: [id number] Referring ??MD: KRISTA EDWARDS Site: [facility] Receiving Weigher: Christine Harris RD MS : 1990 Age: [...] anatomic ultrasound is scott nned in our [place] office at 18 weeks. Return to primary [...] Pat. Name:Jud MARY Date:03/2021 10:34am Pat. NO: [id number] MD:VONNIE SOTO [facility]Christine Harris RDMS :1990Age:30 INDICATION Poor Obstetric History, [...] anatomic ultrasound is scott nned in our [place] office at 18 weeks. Return to primary provider for continued care. If you have questions regarding today's evaluation or if we can be of further service, please contact the Maternal- Medicine Center. anomalies may be present but not detected IMPRESSION 1) There is a live jennings intrauterin e . 2) [place] rump length consistent with est ablished dates at 10w5d gestational age 3) heart rate normal for gestation al age. 4) Normal appearing yolk sac and gestati onal sac. Katie Pinto DO [facility] US ORDERABLES documented in this encounter Visit Diagnoses Diagnosis related condition, antepartum - Primary History of placenta abruption related condition, antepartum History of placenta abruption documented in this encounter
--- OUTSIDE RECORDS SUMMARY | 2022-07-09 09:12 | XMS_ITS | Encounter Summary ---
:1990 Author Organization [place] Address [address] [place] [address] Care Team Providers Name Role Phone [facility], [facility] Primary Care Provider [phone] Mallory Srinivasan Unavailable Unavailable Reason for Visit Reason Onset Date Comments Results 02/23/2021 carrier screening Encounter Details Date Type Department Care Team Description 02/23/2021 Telephone [facility] Lori Barrera, Results (carrier Maternal Medicine GC screening) [address] [address] [place] [phone] Social History Tobacco Use Types Packs/Day Years [...] one condition: Cystic fibrosis (CFTR: [id number] [aka [id number]]): ?? Cystic Fibrosis (CF) is an inherited [...] with any aneuploidy screening. Lori Barrera MS, [facility] Licensed Genetic Counselor [facility] Maternal Medicine [email or web address] [phone] documented in this encounter Plan of Treatment Not on filedocumented as of this encounter Visit Diagnoses Not on filedocumented in this encounter Care Teams Ad Taker Relationship Specialty Start Date End Date Clinic, [facility] PCP - General 02/11/21 [place] [address] [place] [address] Mallory Srinivasan Assigned OBGYN Provider 02/22/21 04/11/21 documented as of this encounter
--- OUTSIDE RECORDS SUMMARY | 2022-07-09 09:12 | XMS_ITS | Encounter Summary ---
:1990 Author Organization [place] Address [address] [place] [address] Care Team Providers Name Role Phone [facility], [facility] Primary Care Provider Mallory Srinivasan Unavailable Unavailable Reason for Referral (Routine) - Closed Specialty Diagnoses / Procedures Referred By Contact Refer red To Contact Diagnoses Abnormal ultrasound Abnormal maternal serum screening test Mora Hi MD [address] [place], [place] [address] Referral ID Status Reason Start Date Expiration Date Visits Requ ested Visits Authorized [id number] Closed 04/07/2021 04/07/2022 1 1 Reason for Visit Reason Comments Ultrasound L2-hx of abruption, anti deangelo l antibody Encounter Details Date Type Department Care Team Description 04/07/2021 Office Visit [facility] Mallory Srinivasan Howard spected chromosome anomaly of fetus affecting management of mother in jennings , antepartum (Primary Dx); Maternal Mora Hi MD [address] [place] [address] Abnormal ultrasound; Medicine Center Abnormal mat ernal serum screening test; [place] Suspected anomaly, ant epartum, single or unspecified fetus [address] [place] [address] Social History Tobacco Use Types [...] Name Type Priority Associated Diagnoses [facility] Genetic Counseling Referral Routine Abnormal Exp ected: 04/07/2021 ultrasound (Approximate), Abnormal maternal serum Expi res: 07/08/2021 screening test documented as of this encounter Results NIPT to [facility]: Laboratory Miscellaneous Order (04/07/2021 10:46 AM CDT) Component Value Ref Test Analysis Performed At [facility] Range Method Time Signature Miscellaneous Specimen Received, Reordered and sent to Performing laboratory - Report to follow upon 04/16/2021 [facility] Test completion. 8:13 AM CDT [facility] Specimen Anatomical Collection Method Collection Time Receive d Time (Source) Location / / Volume Laterality Blood 04/07/2021 10:46 04/07/2021 1:58 AM CDT PM CDT Narrative This result has an attachment that is no t available. Mora Hi MD LAB - BLOOD ORDERABLES Performing Organization Address City/State/ZIP Code Phon e Number [facility] [address] [place] [address] [facility] documented in this encounter Visit Diagnoses Diagnosis Suspected chromosome anomaly of fetus af fecting management of mother in jennings , antepartum - Primary Abnormal ultrasound Abnormal findings on screening Abnormal maternal serum screening test Abnormal findings on screening Suspected anomaly, antepartum, sin gle or unspecified fetus documented in this encounter Care Teams Brush Filler Hand Relationship Specialty Start Date End Date Clinic, [facility] PCP - General 02/11/21 [place] [address] [place] [address] Mallory Srinivasan Assigned OBGYN Provider 02/22/21 04/11/21 documented as of this encounter
--- OUTSIDE RECORDS SUMMARY | 2022-07-09 09:12 | XMS_ITS | Encounter Summary ---
:1990 Author Organization [place] Address [facility] [place] [address] Care Team Providers Name Role Phone Unavailable Primary Care Provider Unavailable Reason for Referral (Routine) - Closed Specialty Diagnoses / Procedures Referred By Contact Refer red To Contact Diagnoses related condition, antepartum Gina Lee [facility] [address] [place] [address] Referral ID Status Reason Start Date Expiration Date Visits Requ ested Visits Authorized [id number] Closed 02/03/2021 02/03/2022 1 1 Encounter Details Date Type Department Care Team Description 02/03/2021 Transcribe Orders [facility] Arcenio Lee related Maternal [facility] antepartum (Primary [place] [address] Dx) [address] [place] [address] [phone] Social History Tobacco Use Types Packs/Day Years Used Date Never Assessed Sex Assigned at Date Recorded Not on file documented as of this encounter Plan of Treatment Scheduled Referrals Name Type Priority Associated Diagnoses Order S carmen [facility] Office Visit Referral Routine related Expect ed: 02/10/2021 condition, antepartum (Appro ximate), Expires: 02/03/2022 documented as of this encounter Visit Diagnoses Diagnosis related condition, antepartum - Primary documented in this encounter
--- OUTSIDE RECORDS SUMMARY | 2022-07-09 09:12 | XMS_ITS | Encounter Summary ---
:1990 Author Organization [place] Address [address] [facility] 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 (Routine) - Closed Specialty Diagnoses / Procedures Referred By Contact Refer red To Contact Diagnoses Abnormal ultrasound Abnormal maternal serum screening test Mora Hi MD [address] [place], [place] [address] Referral ID Status Reason Start Date Expiration Date Visits Requ ested Visits Authorized [id number] Closed 04/07/2021 04/07/2022 1 1 Encounter Details Date Type Department Care Team Description 04/07/2021 Office Visit [facility] Dennys Hi MD [address] [place] [address] Abnormal ultrasound; Maternal Lori Barrera GC [address] [place], [place] [address] Abnormal maternal serum screening test [facility] [address] [facility] [address] [place] [address] Social History Tobacco Use Types [...] Barrera, GC - 04/07/2021 9:[address] [facility] Medicine Center Genetic Counseling Consult Patient: Vanessa Mary Date of : 1990 Date of Service: 04/07/21 Vanessa Mary was seen at the [facility] Maternal Medicine Center for genetic consultation following [...] had a blood draw for NIPT through [facility]. Results are expected within 5-7 days, and will be available in [facility]. We will contact her to discuss the results, and a copy will be forwarded to the office of the referring OB provider. Vanessa provided verbal permission for detailed results ralph left on her voicemail. Charlene opted not to include screening for sex chromosome aneuploidies. The fetus is male by ultrasound. 4. Vanessa has a consultation with genetic counseling and one of the [facility] physicians earlier in her to discuss her [...] syndrome risk= 1:149 ??? Trisomy 18 risk= 1:07613 ??? Open neural tube defects risk= 1:86053 We specifically discussed the analytes in her [...] was not (residual risk of 1 in [address]). 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 Fcwq-ch-[id number] time of the meeting was 20 minutes. Lori Barrera MS, [facility] Licensed Genetic Counselor [facility] Maternal Medicine [phone] documented in this encounter Plan of Treatment Not on filedocumented as of this encounter Visit Diagnoses Diagnosis Abnormal ultrasound Abnormal findings on screening Abnormal maternal serum screening test Abnormal findings on screening documented in this encounter Care Teams Sky Diver Relationship Specialty Start Date End Date Clinic, [facility] PCP - General 02/11/21 [place] [address] [place] [address] Mallory Srinivasan Assigned OBGYN Provider 02/22/21 04/11/21 documented as of this encounter
--- OUTSIDE RECORDS SUMMARY | 2022-07-09 09:12 | XMS_ITS | Encounter Summary ---
:1990 Author Organization [place] Address [address] [place] [address] Care Team Providers Name Role Phone [facility], [facility] Primary Care Provider Reason for Referral Diagnostic Imaging Ultrasound (Routine) - Closed Specialty Diagnoses / Procedures Referred By Contact Refer red To Contact Diagnoses related condition, antepartum History of placenta abruption Ur Maternal Med Procedures [facility] US OB Complete 1st Tri Single [address] [facility] [address] [place], [place] [address] Referral ID Status Reason Start Date Expiration Date Visits Requ ested Visits Authorized [id number] Closed 02/02/2021 02/02/2022 1 1 Reason for Visit Diagnostic Imaging Ultrasound (Routine) - Closed Specialty Diagnoses / Procedures Referred By Contact Refer red To Contact Diagnoses related condition, antepartum History of placenta abruption Ur Maternal Med Procedures [facility] US OB Complete 1st Tri Single [address] [place], [place] [address] Referral ID Status Reason Start Date Expiration Date Visits Requ ested Visits Authorized [id number] Closed 02/02/2021 02/02/2022 1 1 Encounter Details Date Type Department Care Team Description 02/12/2021 Hospital Encounter [facility] Kandy Falk DO [address] [facility] [address] [place], [place] [id number] related condition, antepartum; Maternal Conor, Kelly, MD [address] [facility] [address] [place] [address] History of placenta abruption Medicine [place] Mallory Srinivasan [place] [address] [place] [address] Social History Tobacco Use Types [...] Name Priority Date/Time Associated Diagnosis Comme nts [facility] US OB COMPLETE Routine 02/12/2021 11:13 AM relat ed Results for this 1ST TRI SINGLE CDT condition, procedure are in antepartum the results History of placenta section. abruption documented in this encounter Results [facility] US OB Complete 1st Tri Single (02/12/2021 11:13 AM CDT) Anatomical Region Laterality Modality Ultrasound Specimen (Source) Anatomical Collection Method Collection Time Re ceived Time Location / / Volume Laterality 02/12/2021 10:34 AM CDT Impressions 02/12/2021 11:53 AM CDT IMPRESSION 1) There is a live jennings intrauterin e . 2) Lafferty rump length consistent with est ablished dates at 10w5d gestational age 3) heart rate normal for gestation al age. 4) Normal appearing yolk sac and gestati onal sac. Narrative 02/12/2021 11:53 AM CDT 1st Trim Pat. Name: VANESSA MARY Study Date: 02/12/2021 10:34am Pat. NO: [id number] Referring ??MD: KRISTA EDWARDS Site: [facility] Cotton Tipper: Christine Harris RD MS : 1990 Age: [...] anatomic ultrasound is scott nned in our [place] office at 18 weeks. Return to primary [...] Pat. Name:Jud MARY Date:03/2021 10:34am Pat. NO: [id number] MD:January [facility]Christine Harris RDMS :1990Age:30 INDICATION Poor Obstetric [...] anatomic ultrasound is scott nned in our [place] office at 18 weeks. Return to primary provider for continued care. If you have questions regarding today's evaluation or if we can be of further service, please contact the [facility] Center. anomalies may be present but not detected IMPRESSION 1) There is a live jennnigs intrauterin e . 2) Lafferty rump length consistent with est ablished dates at 10w5d gestational age 3) heart rate normal for gestation al age. 4) Normal appearing yolk sac and gestati onal sac. Katie Pinto DO [facility] US ORDERABLES documented in this encounter Visit Diagnoses Diagnosis related condition, antepartum History of placenta abruption documented in this encounter Care Teams Quarantine Officer Relationship Specialty Start Date End Date Clinic, [facility] PCP - General 02/11/21 [address] [place] [address] documented as of this encounter
--- OUTSIDE RECORDS SUMMARY | 2022-07-09 09:12 | XMS_ITS | Encounter Summary ---
:1990 Author Organization [place] Address [address] [place] [address] Care Team Providers Name Role Phone [facility], [facility] Primary Care Provider [phone] Mora Hi MD Unavailable Reason for Visit Reason Onset Date Comments Results 04/16/2021 low-risk NIPT Encounter Details Date Type Department Care Team Description 04/16/2021 Telephone [facility] Lori Barrera, Results (low-risk NIPT) Maternal Medicine [address] [address] [place] [phone] Social History Tobacco Use Types Packs/Day Years [...] amniocentesis. Her results are available in her [facility] chart for her primary OB to review. Lori Barrera, MS, [facility] Licensed Genetic Counselor [facility] Maternal Medicine [email or web address] [phone] documented in this encounter Plan of Treatment Not on filedocumented as of this encounter Visit Diagnoses Not on filedocumented in this encounter Care Teams Geographic Information Systems Analyst Relationship Specialty Start Date End Date Clinic, [facility] PCP - General 02/11/21 [place] [address] [place] [address] Mora Hi MD Assigned OBGYN Provider 04/12/21 08/29/[address] [place] [address] [address] [place] [address] documented as of this encounter
--- OUTSIDE RECORDS SUMMARY | 2022-07-09 09:12 | XMS_ITS | Encounter Summary ---
:1990 Author Organization [place] Address [facility] [place] [address] Care Team Providers Name Role Phone [facility], [facility] Primary Care Provider [phone] Mallory Srinivasan Unavailable Unavailable Encounter Details Date Type Department Care Team Description 04/07/2021 Hospital Encounter [facility] Mallory Srinivasan old Abnormal ultrasound; [facility] Mora Hi MD [address] [address] [place], [place] [address] Abnormal maternal serum screening test [address] [place] [address] Social History Tobacco Use Types [...] Component Value Ref Test Analysis Performed At [facility] gist Range Method Time Signature Miscellaneous Specimen Received, Reordered and sent to Performing laboratory - Report to follow upon 04/16/2021 [facility] Test completion. 8:13 AM CDT [facility] Specimen Anatomical Collection Method Collection Time Receive d Time (Source) Location / / Volume Laterality Blood 04/07/2021 10:46 04/07/2021 1:58 AM CDT PM CDT Narrative This result has an attachment that is no t available. Mora Hi MD LAB - BLOOD ORDERABLES Performing Organization Address City/State/ZIP Code Phon e Number [facility] [address] [place], [place] [id number] [place] [address] documented in this encounter Visit Diagnoses Diagnosis Abnormal ultrasound Abnormal findings on screening Abnormal maternal serum screening test Abnormal findings on screening documented in this encounter Care Teams Court Registry Officer Relationship Specialty Start Date End Date [facility] PCP - General 02/11/21 [place] [address] [place] [phone] Mallory Srinivasan Assigned OBGYN Provider 02/22/21 04/11/21 documented as of this encounter
--- OUTSIDE RECORDS SUMMARY | 2022-07-09 09:12 | XMS_ITS | Encounter Summary ---
:1990 Author Organization [place] Address [address] [place] [address] Care Team Providers Name Role Phone [facility], [facility] Primary Care Provider Encounter Details Date [...] on filedocumented in this encounter Care Teams Welding Pantograph Operator Relationship Specialty Start Date End Date [facility], [facility] PCP - General 02/11/21 [address] [place] [address] documented as of this encounter
--- OUTSIDE RECORDS SUMMARY | 2022-07-09 09:13 | XMS_ITS | Encounter Summary ---
:1990 Author Organization [facility] Address [address] [place] [address] Care Team Providers Name Role Phone Unavailable Primary Care Provider Unavailable Reason for Visit Reason Comments SIMBA Nurse Line Encounter Details Date Type Department Care Team Description 12/19/2020 Clinical Communication Division of Mallory Wilson Nurse Melissa [facility] Internal Edward, [facility], [facility] in [place], [place] [address] [place] [address] Social History Tobacco Use Types Packs/Day Years Used Date Smoking Tobacco: Never Assessed Sex Assigned at Date Recorded Not on file documented as of this encounter Miscellaneous Notes Telephone Encounter - Mallory Wilson R.N. - 12/19/2020 12:13 PM CST COVID-19 Nurse Line Screening ASSESSMENT Region Select appropriate region: : [place] Age Pathway Select approprite pathway: : Adult [...] swabbed for COVID-19 Only , sent to [facility] located at [address] [place] [address]. The entrance is on the north side of the building. You must call [phone] during the hours of 7am to 6 [...] water are not available, use a hand grain elevator worker -Avoid touching your eyes, nose and mouth. [...] care: Yes The following references were used: [facility] novel coronavirus (COVID- 19) resources Nursing judgement DYEING MACHINE LOADER documented in this encounter Plan of Treatment Not on filedocumented as of this encounter Visit Diagnoses Not on filedocumented in this encounter
--- OUTSIDE RECORDS SUMMARY | 2022-07-09 09:13 | XMS_ITS | Encounter Summary ---
:1990 Author Organization [facility] Address [address] [place] [address] Care Team Providers Name Role Phone Unavailable Primary Care Provider Unavailable Reason for Visit Reason Comments COVID Inquiry Encounter Details Date Type Department Care Team Description 12/19/2020 Clinical Communication Central Appointment [facility] [place] [facility] in [facility] [address] [place] [address] Social History Tobacco Use Types Packs/Day Years [...] Because of symptoms, transfer patient to: : [place] COVID Nurse Line (End Screening) Symptom Onset Date of symptom onset: 12/18/20 Testing Recommendation Endpoint Is testing recommended? : Transferred to nursing call line Plan: Endpoint recommendation: Transferred to Nursing/COVID Line/Care Team *Reminder if sending patient for testing in [facility], route encounter to the correct testing pool. L STAFF MEMBER documented in this encounter Plan of Treatment Not on filedocumented as of this encounter Visit Diagnoses Not on filedocumented in this encounter
--- OUTSIDE RECORDS SUMMARY | 2022-07-09 09:13 | XMS_ITS | Encounter Summary ---
:1990 Author Organization [place] Address [address] [place] [address] Care Team Providers Name Role Phone Unavailable Primary Care Provider Unavailable Reason for Referral (Routine) - Closed Specialty Diagnoses / Procedures Referred By Contact Refer red To Contact Diagnoses related condition, antepartum Gina Lee [facility] [address] [place] [address] Referral ID Status Reason Start Date Expiration Date Visits Requ ested Visits Authorized [id number] Closed 01/30/2021 01/30/2022 1 1 Encounter Details Date Type Department Care Team Description 01/30/2021 Transcribe Orders [facility] Jesus Ap ril related Maternal [facility] condition, [facility] MEDICAL antepartum (Primary [place] [address] [address] Dx) [address] [place], [place] [address] [address] [place], [place] [phone] [address] (Work) [phone] Social History Tobacco Use Types Packs/Day Years [...]
--- OUTSIDE RECORDS SUMMARY | 2022-07-09 09:13 | XMS_ITS | Encounter Summary ---
:1990 Author Organization [facility] Address [address] [place] [address] Care Team Providers Name Role Phone Unavailable Primary Care Provider Unavailable Encounter Details Date Type Department Care Team Description 12/19/2020 Admin Visit Department of Family Medicine, [address] [address] [facility] [phone] Social History Tobacco Use Types Packs/Day Years Used Date Smoking Tobacco: Never Assessed Sex Assigned at Date Recorded Not on file documented as of this encounter Plan of Treatment Not on filedocumented as of this encounter Visit Diagnoses Not on filedocumented in this encounter Additional Health Concerns Infection Onset Date Last Indicated Resolved Time COVID19 Pending 12/19/2020 12/19/2020 12/20/2020 12:47 AM 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
--- OUTSIDE RECORDS SUMMARY | 2022-07-09 09:13 | XMS_ITS | Encounter Summary ---
:1990 Author Organization [facility] Address [address] [place] [address] Care Team Providers Name Role Phone Unavailable Primary Care Provider Unavailable Reason for Visit Reason Onset Date Comments Outpatient COVID-19 Testing 12/19/2020 Encounter Details Date Type Department Care Team Description 12/19/2020 External Outreach Department of [facility] Danielito Mae Contact With And Medicine, [facility] Kiarra Leon (Suspected) Exposure Building, in [address] To COVID-19 ([place], [place] Dx) [address] [facility] [address] [place], [place] [phone] [address] (Work) [phone] Social History Tobacco Use Types Packs/Day Years Used Date Smoking Tobacco: Never Assessed Sex Assigned at Date Recorded Not on file documented as of this encounter Progress Notes Harshil Oreilly R.N. - 12/19/2020 1:01 PM CST Encounter created for COVID-19 screening. 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 documented in this encounter Results SARS Coronavirus-2 RNA, V Asymptomatic (12/19/2020 2:51 PM SHEARER SCREEN MEASURER AND TRIMMER) [facility] Method Time Signature SARS-CoV-2 Swab, 12/20/2020 [facility] Specimen Nasopharynx 12:45 AM Source SHEARER SCREEN MEASURER AND TRIMMER SARS CoV-2 Undetected Undetected 12/20/2020 [facility] RNA, TMA 12:45 AM SHEARER SCREEN MEASURER AND TRIMMER Comment: SARS-CoV-2 RNA absent. This result does not rule out COVID-19 in the patient, as the sensitivity of the test depends o n the timing of the specimen collection and the quality of the specim en. Result should be correlated with patient's history and clinical presentat ion. ----ADDITIONAL INFORMATION---- This molecular amplification test was pe rformed using the Aptima SARS-CoV-2 assay ([employer] on the [employer] tem under emergency use authorization (EUA) by the U.S. Food and Drug Administ ration. Fact sheets for this EUA assay can be fo und at the following links: For Healthcare Providers: https://www.fd a.gov/media/859913/download For Patients: https://www.fda.gov/media/ 294808/download Specimen Anatomical Collection Method Collection Time Receive d Time (Source) Location / / Volume Laterality Varies 12/19/2020 2:51 PM 7:26 (Nasopharynx) SHEARER SCREEN MEASURER AND TRIMMER PM SHEARER SCREEN MEASURER AND TRIMMER Danielito Mae D.O. LAB MICROBIOLOGY - GENERAL O RDERABLES Performing Organization Address City/State/ZIP Code Phon e Number [facility] [address] [place] [phone] [place] [address] [place] [address] [address] documented in this encounter Visit Diagnoses Diagnosis Contact With And (Suspected) Exposure To COVID-19 - Primary documented in this encounter Additional Health Concerns Infection Onset Date Last Indicated Resolved Time COVID19 Pending 12/19/2020 12/19/2020 12/20/2020 12:47 AM SHEARER SCREEN MEASURER AND TRIMMER documented as of this encounter
--- OUTSIDE RECORDS SUMMARY | 2022-07-09 09:13 | XMS_ITS | Clinical Summary ---
:1990 Author Organization [facility] Address [address] [place] [address] Care Team Providers Name Role Phone Unavailable Primary Care Provider Unavailable Source Comments Patient records contain information from all sites at [facility]. For routine questions regarding patient records, call [phone] during business hours, M-F 8:00 AM - 5:00 PM Central Time. Record requests for emergency care only can be directed to [phone] at any time.[facility] Social History Tobacco Use Types Packs/Day Years [...] Dates Phone Address Type / Group [facility] CARE [id number] 2021-Lucila [phone] [address] Medicaid HMO t [address] [place] [address]
--- OUTSIDE RECORDS SUMMARY | 2022-07-09 09:13 | XMS_ITS | Encounter Summary ---
:1990 Author Organization [facility] Address [address] [place] [address] Care Team Providers Name Role Phone Unavailable Primary Care Provider Unavailable Encounter Details Date Type Department Care Team Description 02/04/2021 Orders Only [facility] PCP TH Sa sujatha Mena M.D. [address] [place], [place] [phone] (Wo rk) Social History Tobacco Use Types Packs/Day Years Used Date Smoking Tobacco: Never Assessed Sex Assigned at Date Recorded Not on file documented as of this encounter Plan of Treatment Not on filedocumented as of this encounter Visit Diagnoses Not on filedocumented in this encounter
--- OUTSIDE RECORDS SUMMARY | 2022-07-09 09:13 | XMS_ITS | Encounter Summary ---
:1990 Author Organization [place] Address [address] [place] [address]. [place] [address] Care Team Providers Name Role Phone Unavailable Primary Care Provider Unavailable Encounter Details Date Type Department Care Team Description 01/30/2021 [facility] Health Info [facility] Non-Provider [facility] [address] [place] [address] Social History Tobacco Use Types Packs/Day Years Used Date Never Assessed Sex Assigned at Date Recorded Not on file documented as of this encounter Plan of Treatment Not on filedocumented as of this encounter Visit Diagnoses Not on filedocumented in this encounter
--- NOTE | 2022-07-09 10:36 | W.ANESCHARGE ---
Anesthesia Charges Start Date/Time Anesthesia Start Date: 07/09/22 Anesthesia Start Time: 10:09 Stop Date/Time Anesthesia Stop Date: 07/09/22 Anesthesia Stop Time: 10:35 Summary Emergency: No
--- NOTE | 2022-07-09 11:39 | W.ANESCHARGE ---
Anesthesia Charges Start Date/Time Anesthesia Start Date: 07/09/22 Anesthesia Start Time: 10:09 Stop Date/Time Anesthesia Stop Date: 07/09/22 Anesthesia Stop Time: 10:35 Summary Emergency: No
== END 2022-07-09 09:08 | disposition home or self-care (01) ==
PROVIDERS: PCP Internal Medicine; Visit Provider Internal Medicine
DX: K62.5 Hemorrhage of anus and rectum (principal); K64.8 Other hemorrhoids
CPT/HCPCS: 00812; 45378; J2704